=== PATIENT | female | born 1970 | race Caucasian/White ===

== ENCOUNTER 2016-08-28 11:57 | Emergency (ER) | payer MEDICARE, MEDICAID | END 2016-08-28 15:36 | disposition home or self-care (01) | DX: S70.02XA Contusion of left hip, initial encounter (principal); W01.0XXA Fall on same level from slipping, tripping and stumbling without subsequent striking against object, initial encounter; Y92.019 Unspecified place in single-family (private) house as the place of occurrence of the external cause; G90.50 Complex regional pain syndrome I, unspecified; M79.7 Fibromyalgia; F17.200 Nicotine dependence, unspecified, uncomplicated ==

== ENCOUNTER 2016-09-14 09:22 | Emergency (ER) | payer MEDICARE, MEDICAID ==
[2016-09-14] MEDS ORDERED: PROMETHAZINE 25 MG/1 ML VIAL IM STA (12:14)
[2016-09-14] MEDS ORDERED: KETOROLAC 60 MG/2 ML VIAL IM STA (12:14)
--- NOTE | 2016-09-14 12:16 | ED Physician Documentation ---
PD HPI BACK INJURY - Stated complaint Stated Complaint: BACK PX,RIB PX - History obtained from History obtained from: Patient - History of Present Illness Location: Other (46-year-old woman with history of chronic pain in her hips, RSD , she fell 5 days ago on a ramp, landing on her back, also hitting her head. She has no persistent headache, but has persistent severe mid back pain radiating to the front from the incident. It is not resolved with her home hydrocodone, and she's been vomiting, nausea is not uncommon with her. 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, 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, Oophrectomy HEENT: Tonsil/Adenoidectomy - Present Medications Home Medications: Ambulatory Orders Medication Instructions Recorded Confirmed Gabapentin 300 mg PO DAILY 03/11/15 09/14/16 Hydrocodone/Acetaminophen 1 tab PO DAILY 09/14/16 09/14/16 [Hydrocodone-Acetamin 5-163/7.5] Oxycodone HCl/Acetaminophen 1 - 2 tab PO Q4H PRN #10 tablet 09/14/16 [Percocet 5-325 mg Tablet] Propranolol [Inderal] 10 mg PO DAILY 09/14/16 09/14/16 - Allergies Allergies/Adverse Reactions: Allergies Allergy/AdvReac Type Severity Reaction Status Date / Time pregabalin [From Lyrica] Allergy Intermediate Respiratory Verified 03/11/15 08: 41 morphine Allergy Edema Verified 03/11/15 08:41 tramadol HCl * [From Ultram] Allergy Hives Verified 03/11/15 08:41 - Social History Does the pt smoke?: Yes Smoking Status: Current every day smoker Does the pt drink ETOH?: No Does the pt have substance abuse?: Yes Substance Use and Type: Marijuana - Immunizations Immunizations are current?: Yes - POLST Patient has POLST: No PD ED PE NORMAL - Vitals Vital signs reviewed: Yes - General General: Other (Tearful with expansive affect, walking fine, moving around without wincing.) - HEENT HEENT: PERRL, EOMI - Neck Neck: Supple, no meningeal sign, No bony TTP - Cardiac Cardiac: RRR, No murmur - Respiratory Respiratory: No respiratory distress, Clear bilaterally - Abdomen Abdomen: Non tender - Back Back: Other (Diffusely across her whole back she is tender, hyperesthetic, there is no ecchymosis. She points to the lower thoracic spine and right posterior ribs as the site of the pain. The patient has equal and normal patellar and Achilles reflexes bilaterally. Normal sensation in all areas of the legs. Patient denies saddle anesthesia. Normal strength in flexion and extension at the ankles, knees and flexion of the hips.) - Extremities Extremities: No deformity, No tenderness to palpate - Neuro Neuro: Alert and oriented X 3, Normal speech Results - Vitals Vitals: Vital Signs - 24 hr 09/14/16 09:35 Temperature 36.5 C Heart Rate 70 Respiratory 18 Rate Blood Pressure 105/72 O2 Saturation 96 Oxygen O2 Source Room air - Rads (name of study) T spine and B rib XRs Radiology: EMP read contemporaneously (normal) Departure - Departure Disposition: 01 Home, Self Care Clinical Impression: Bilateral contusion of ribs Back contusion Qualifiers: Encounter type: initial encounter Laterality: unspecified laterality Qualified Code(s): S20.229A - Contusion of unspecified back wall of thorax, initial encounter Condition: Good Record reviewed to determine appropriate education?: Yes Instructions: ED Contusion Back Prescriptions: Oxycodone HCl/Acetaminophen [Percocet 5-325 mg Tablet] 1 - 2 tab PO Q4H PRN #10 tablet PRN Reason: Pain Comments: Call your doctor to arrange a follow up appointment. Make the next available appointment. In the interim return anytime if worse or if new symptoms develop. Do not drink or drive while on narcotic pain medicine. Note that many narcotic pain relievers also contain tylenol/acetaminophen. Please ensure that your total dose of acetaminophen from all sources does not exceed 3 grams (3000mg) per day. You may constipated on this medication, take a stool softener such as "Colace" twice a day while you are on it. Also recommend a umgb-mmb-[id number] laxative such as senna or MiraLAX any day that you do not have a bowel movement. If you received narcotic pain medication in the emergency department, do not drive or operate machinery for the next 24 hours.
[2016-09-14] MEDS ORDERED: PROMETHAZINE 25 MG/1 ML VIAL ONE (12:17)
[2016-09-14] MEDS ORDERED: KETOROLAC 60 MG/2 ML VIAL ONE (12:17)
--- NOTE | 2016-09-14 12:52 | XRAY Preliminary Report ---
Exam: XR Thoracic Spine 2 View IMPRESSION: Normal thoracic spine radiography. [facility] SITE ID: [id number]
--- NOTE | 2016-09-14 12:54 | XRAY Preliminary Report ---
Exam: XR Ribs Bilat w/Chest 4 View IMPRESSION: Normal chest and rib radiography. [facility] SITE ID: [id number]
--- NOTE | 2016-09-14 12:57 | XRAY Report ---
EXAM: THORACIC SPINE RADIOGRAPHY EXAM DATE: 09/14/2016 12:45 PM. CLINICAL HISTORY: Back pain, fall. COMPARISON: Thoracic spine MRI study from 04/13/2014. TECHNIQUE: 3 views. FINDINGS: Alignment: Normal. No spondylolisthesis or scoliosis. Bones: No fractures or bone lesions. Disks: Normal. Disk heights are maintained. Soft Tissues: Normal. The visualized lungs and cardiomediastinal silhouette are normal. IMPRESSION: Normal thoracic spine radiography. [facility] Referring Provider Line: [phone] SITE ID: [id number]
--- NOTE | 2016-09-14 12:57 | XRAY Report ---
EXAM: BILATERAL RIB RADIOGRAPHY EXAM DATE: 09/14/2016 12:45 PM. CLINICAL HISTORY: Rib and back pain, fall. COMPARISON: None. TECHNIQUE: 1 view of the chest and 3 views of the ribs. FINDINGS: Bones: Normal. No fracture or bone lesion. Lungs: No focal opacities. No pneumothorax. No pleural effusions. Mediastinum: Heart and mediastinal contours are unremarkable. Other: None. IMPRESSION: Normal chest and rib radiography. [facility] Referring Provider Line: [phone] SITE ID: [id number]
[2016-09-14 13:18] VITALS: BP 112/73
== END 2016-09-14 13:18 | disposition home or self-care (01) ==
LOC: ED 09:22
DX: S20.212A Contusion of left front wall of thorax, initial encounter (principal); S20.211A Contusion of right front wall of thorax, initial encounter; S20.229A Contusion of unspecified back wall of thorax, initial encounter; W10.2XXA Fall (on)(from) incline, initial encounter; Y93.01 Activity, walking, marching and hiking; G90.50 Complex regional pain syndrome I, unspecified; M79.7 Fibromyalgia; F17.200 Nicotine dependence, unspecified, uncomplicated
CPT/HCPCS: 71111; 72070; 96372; 99283

== ENCOUNTER 2016-10-14 09:00 | Emergency (ER) | payer MEDICARE, MEDICAID ==
[2016-10-14 09:22] VITALS: BP 133/91
[2016-10-14] MEDS ORDERED: DEXAMETHASONE 10 MG/ML VIAL PO STA (11:50)
[2016-10-14] MEDS ORDERED: KETOROLAC 60 MG/2 ML VIAL IM STA (11:50)
--- NOTE | 2016-10-14 11:53 | ED Physician Documentation ---
History of Present Illness - Stated complaint Stated Complaint: BODY PX - Chief complaint Chief Complaint: Ext Problem - Additonal information Additional information: hx from pt 46 female states he she has ccomplex regional pain syndrome and fibromylagia (and per CHEO : PTSD bipolar, possible borderline personality disorder) also recent concussion for she has been evaluated wt [facility] - looks like in SEPTEMBER due to her pain/underlying medical issues she is not no longer able to drive to her PMD Dr Goldman at the [facility] in [place] - used to be seen at [facility] but per CHEO that provider declined to prescribe narcotics and referred pt to a pain clinic to ER for several goals 1) she would like a referral to Dr Leiva on [place] (which i will do) 2) and her heart meds refilled (which i will do) 3) and some toradol and steroid in the ER for her pain (which i will do) 4) and her vicodin refilled (which i advised i cannot do) 5) she lives in a trailer and can no longer start her generator, cannot dress herself, cannot care for herself etc so she would like to speak to the foster care social worker (consulted) it is quite difficult to get a hx from the pt - she is agitated anxious pacing and has rapid pressured speech and is upset easily Review of Systems Cardiac: reports: Chest pain / pressure (healing injuries from fall) GI: denies: Abdominal Pain Musculoskeletal: reports: Joint pain (shoulders), Other (states she has entire body pain) PD PAST MEDICAL HISTORY - Past Medical History Cardiovascular: None Neuro: Headache/migraine, Other Psych: Anxiety, Bipolar disorder, Post traumatic stress disorder Musculoskeletal: Fibromyalgia, Chronic back pain - Past Surgical History 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, 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, Oophrectomy HEENT: Tonsil/Adenoidectomy - Present Medications Home Medications: Ambulatory Orders Medication Instructions Recorded Confirmed Gabapentin 300 mg PO DAILY 03/11/15 10/14/16 Hydrocodone/Acetaminophen 1 tab PO DAILY 09/14/16 10/14/16 [Hydrocodone-Acetamin 5-163/7.5] Propranolol [Inderal] 10 mg PO DAILY 09/14/16 10/14/16 - Allergies Allergies/Adverse Reactions: Allergies Allergy/AdvReac Type Severity Reaction Status Date / Time pregabalin [From Lyrica] Allergy Intermediate Respiratory Verified 10/14/16 12: 09 morphine Allergy Edema Verified 10/14/16 12:09 tramadol HCl * [From Ultram] Allergy Hives Verified 10/14/16 12:08 - Social History Does the pt smoke?: Yes Smoking Status: Current every day smoker Does the pt drink ETOH?: No Does the pt have substance abuse?: Yes - Immunizations Immunizations are current?: Yes - POLST Patient has POLST: No PD ED PE NORMAL - Vitals Vital signs reviewed: Yes - HEENT HEENT: PERRL - Neck Neck: Supple, no meningeal sign - Cardiac Cardiac: RRR - Respiratory Respiratory: No respiratory distress, Clear bilaterally, Other (left chest wall TTP no visible bruising or lesions) - Abdomen Abdomen: Soft, Non tender - Derm Derm: Normal color - Neuro Neuro: Other (highly agitated anxious stumbling gait swaying stance refuses to sit down rapid speech) Results - Vitals Vitals: Vital Signs - 24 hr 10/14/16 09:17 Temperature 36.5 C Heart Rate 79 Respiratory 17 Rate Blood Pressure 133/91 H O2 Saturation 99 Oxygen O2 Source Room air PD MEDICAL DECISION MAKING - ED course ED course: asked SW to see pt - SW Denies met with pt and advised that she could help pt get transport to either Dr Leiva (but no new pt appt for at least a month) or her Dr Goldman in [place], also began to address home issues pt very upset because I ordered toradol and decadron - when i said i would get her something for her pain I meant to start with toradol and steroids, I had said I would not refill her vicodin but might be able to give a dose in the ER ( I wanted to review her CHEO and see how she responded to the toradol before dealing with narcotics) and i think she thought she was going to get narcotics right away - she said she had been deceived and she was leaving to go to a walk in clinic - I asked why she felt deceived and she could or would not elaborate but i think that it was related to not getting vicodin immediately - I explained that we were trying to help her - that I had given her pain medications and was refilling her heart meds and the SW was trying to help with transport and housing etc - pt she continued to escalate and be very upset and angry and then eloped all together Departure - Departure Disposition: Against Medical Advice Clinical Impression: Total body pain Condition: Good Discharge Date/Time: 10/14/16 12:19
[2016-10-14] MEDS ORDERED: CHERRY SYRUP 10 ML UDC PO ONE (12:01)
[2016-10-14] MEDS ORDERED: KETOROLAC 60 MG/2 ML VIAL ONE (12:02)
[2016-10-14] MEDS ORDERED: DEXAMETHASONE 10 MG/ML VIAL ONE (12:02)
== END 2016-10-14 12:19 | disposition left against medical advice (07) ==
LOC: ED 09:00
DX: M25.50 Pain in unspecified joint (principal); G89.4 Chronic pain syndrome; M79.7 Fibromyalgia; F17.200 Nicotine dependence, unspecified, uncomplicated; Z76.0 Encounter for issue of repeat prescription
CPT/HCPCS: 96372; 99282; 99283; A9270

== ENCOUNTER 2016-10-15 14:03 | Emergency (ER) | payer MEDICARE, MEDICAID ==
[2016-10-15 14:08] VITALS: BP 152/97
[2016-10-15] MEDS ORDERED: KETOROLAC 60 MG/2 ML VIAL IM STA (14:37)
[2016-10-15] MEDS ORDERED: HYDROcod/ACETAM 5/325 MG TABLET PO STA (14:38)
[2016-10-15] MEDS ORDERED: PROPRANOLOL 10 MG TABLET PO STA (14:39)
[2016-10-15] MEDS ORDERED: KETOROLAC 60 MG/2 ML VIAL ONE (14:46)
[2016-10-15] MEDS ORDERED: HYDROcod/ACETAM 5/325 MG TABLET ONE (14:46)
--- NOTE | 2016-10-15 14:47 | ED Physician Documentation ---
History of Present Illness - Stated complaint Stated Complaint: LEFT SHOULDER PX - Chief complaint Chief Complaint: General - History obtained from History obtained from: Patient Review of Systems Constitutional: reports: Fatigue, Sweats Eyes: denies: Decreased vision Ears: denies: Ear pain Nose: reports: Congestion Throat: denies: Sore throat Cardiac: denies: Chest pain / pressure, Palpitations Respiratory: reports: Cough GI: reports: Abdominal Pain, Diarrhea. 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 HEENT: Tonsil/Adenoidectomy - Allergies Allergies/Adverse Reactions: Allergies Allergy/AdvReac Type Severity Reaction Status Date / Time pregabalin [From Lyrica] Allergy Intermediate Respiratory Verified 10/15/16 14: 08 morphine Allergy Edema Verified 10/15/16 14:08 tramadol HCl * [From Ultram] Allergy Hives Verified 10/15/16 14:08 Tricyclic Compounds Allergy Anxiety Verified 10/15/16 14:09 venlafaxine HCl * Allergy Unknown Verified 10/15/16 14:09 [From Effexor] - Social History Does the pt smoke?: Yes Smoking Status: Current every day smoker Does the pt drink ETOH?: No Does the pt have substance abuse?: Yes - Immunizations Immunizations are current?: Yes - POLST Patient has POLST: No PD ED PE NORMAL - Vitals Vital signs reviewed: Yes (tachy and hypertensive) - General General: Alert and oriented X 3, No acute distress, Other (unkempt) - HEENT HEENT: Atraumatic, PERRL, EOMI - Neck Neck: Supple, no meningeal sign - Cardiac Cardiac: No murmur, Other (TACHY TO 100) - Respiratory Respiratory: No respiratory distress, Clear bilaterally - Abdomen Abdomen: Soft, Non tender - Back Back: Other (There is tenderness to the back to superficial palpation. The pain is exagerated. ) - Derm Derm: Normal color, Warm and dry, No rash - Extremities Extremities: No deformity, No edema, Other (The patient does appear unkempt) - Neuro Neuro: Alert and oriented X 3, No motor deficit, No sensory deficit, Other ( speech is pressured) - Psych Psych: Other (mood is labile happy talkative and then despondent. ) Results - Vitals Vitals: Vital Signs - 24 hr 10/15/16 14:05 Temperature 38.0 C H Heart Rate 106 H Respiratory 18 Rate Blood Pressure 152/97 H O2 Saturation 99 Oxygen O2 Source Room air PD MEDICAL DECISION MAKING - ED course Complexity details: reviewed old records, reviewed results, re-evaluated patient , considered differential, d/w patient ED course: 46 y/o female with chronic complex regional pain syndrome is having a pain crisis and is here the second day in a row asking for help. She indicates she is not able to care for herself at home. She does not have running water or electricity and she has strained the left side of her body pulling on the generator cord. She was in the ED yesterday and feels the steroid and the toradal helped with her pains. She is tangential and circumferential in her history. I have contacted her PMD Dr. Roland Goldman and he will make room in his schedule to see her tomorrow and we will work on help with transportation. Departure - Departure Disposition: 01 Home, Self Care Clinical Impression: Total body pain Condition: Stable Instructions: ED Neck Back Pain General Follow-Up: Roland Goldman MD [Physician No Access] -
== END 2016-10-15 15:30 | disposition home or self-care (01) ==
LOC: ED 14:03
DX: R52 Pain, unspecified (principal); M79.7 Fibromyalgia; F17.200 Nicotine dependence, unspecified, uncomplicated
CPT/HCPCS: 96372; 99283; A9270

== ENCOUNTER 2016-10-16 05:46 | Outpatient (CLI) | payer MEDICARE, MEDICAID | END 2016-10-16 05:47 | disposition critical access hospital (66) | LOC: EMS 05:46 | PROVIDERS: ATTEND Surgery | DX: R10.9 Unspecified abdominal pain (principal) | CPT/HCPCS: A0425; A0429 ==

== ENCOUNTER 2016-10-16 06:01 | Emergency (ER) | payer MEDICARE, MEDICAID ==
[2016-10-16 06:52] LABS: BILIRUBIN,URINE NEGATIVE (NEGATIVE)
[2016-10-16 06:54] LABS: HCG UR QUAL NEGATIVE; UA CHARGE (STRIP ONLY) YES; UR CULTURE IF IND NOT INDICATED
[2016-10-16] MEDS ORDERED: HYDROcod/ACETAM 5/325 MG TABLET PO STA (07:31)
[2016-10-16] MEDS ORDERED: HYDROcod/ACETAM 5/325 MG TABLET ONE (07:36)
--- NOTE | 2016-10-16 07:39 | ED Physician Documentation ---
History of Present Illness - Stated complaint Stated Complaint: ABD PN/GEN BODY ACHE - Chief complaint Chief Complaint: General - History obtained from History obtained from: Patient - History of Present Illness Timing: Today - Additonal information Additional information: 46 y/o female with neuro-inflammatory pain has run out of her vicoden and she is having trouble with abdominal pain and all-over body pain. She has an appointment to see her pain management doctor today at 11am in [place]. She has come to the ED for help the past 3 days. She has had a recent change in her living and is now living alone on property in a trailer without electricity or running water. She is unkempt and disorganized in her thought processes. Review of Systems Constitutional: reports: Myalgias, Fatigue. denies: Fever Eyes: denies: Decreased vision Ears: denies: Ear pain Nose: reports: Congestion Throat: denies: Sore throat Cardiac: denies: Chest pain / pressure, Palpitations Respiratory: denies: Dyspnea, Cough GI: reports: Abdominal Pain, Nausea : denies: Dysuria Skin: denies: Rash Musculoskeletal: reports: Neck pain, Back pain, Extremity pain Neurologic: denies: Generalized weakness, Focal weakness, Numbness PD PAST MEDICAL HISTORY - Past Medical History Cardiovascular: None Neuro: Headache/migraine, Other Psych: Anxiety, Bipolar disorder, Post traumatic stress disorder Musculoskeletal: Fibromyalgia, Chronic back pain - Past Surgical History 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, 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, Oophrectomy HEENT: Tonsil/Adenoidectomy - Allergies Allergies/Adverse Reactions: Allergies Allergy/AdvReac Type Severity Reaction Status Date / Time pregabalin [From Lyrica] Allergy Intermediate Respiratory Verified 10/16/16 06: 09 morphine Allergy Edema Verified 10/16/16 06:09 tramadol HCl * [From Ultram] Allergy Hives Verified 10/16/16 06:09 Tricyclic Compounds Allergy Anxiety Verified 10/16/16 06:09 venlafaxine HCl * Allergy Unknown Verified 10/16/16 06:09 [From Effexor] - Social History Does the pt smoke?: Yes Smoking Status: Current every day smoker Does the pt drink ETOH?: No Does the pt have substance abuse?: Yes Substance Use and Type: Marijuana - Immunizations Immunizations are current?: Yes - POLST Patient has POLST: No PD ED PE NORMAL - Vitals Vital signs reviewed: Yes - General General: No acute distress, Well developed/nourished - HEENT HEENT: Atraumatic, PERRL - Respiratory Respiratory: No respiratory distress - Abdomen Abdomen: Soft, Non tender, Non distended - Derm Derm: Normal color, Warm and dry, No rash - Extremities Extremities: No deformity, No edema - Neuro Neuro: No motor deficit, No sensory deficit, Other (speech is tangential and there are elements of pressured speech. ) - Psych Psych: Normal mood, Normal affect Results - Vitals Vitals: Vital Signs - 24 hr 10/16/16 06:04 Temperature 36.5 C Heart Rate 57 L Respiratory 16 Rate Blood Pressure 119/64 O2 Saturation 99 Oxygen O2 Source Room air - Labs Labs: Laboratory Tests 10/16/16 10/16/16 10/16/16 06:43 06:43 06:43 Urine Color YELLOW Urine Clarity CLEAR Urine pH 6.0 Ur Specific [place] 1.010 1.010 Urine Protein NEGATIVE Urine Glucose (UA) NEGATIVE Urine Ketones NEGATIVE Urine Occult Blood NEGATIVE Urine Nitrite NEGATIVE Urine Bilirubin NEGATIVE Urine Urobilinogen 0.2 (NORMAL) Ur Leukocyte Esterase NEGATIVE Ur Microscopic Review NOT INDICATED Urine Culture Comments NOT INDICATED Urine HCG, Qual NEGATIVE Urine Opiates Screen POSITIVE H Ur Oxycodone Screen NEGATIVE Urine Methadone Screen NEGATIVE Ur Propoxyphene Screen NEGATIVE Ur Barbiturates Screen NEGATIVE Ur Tricyclics Screen NEGATIVE Ur Phencyclidine Scrn NEGATIVE Ur Amphetamine Screen NEGATIVE U Methamphetamines Scrn NEGATIVE U Benzodiazepines Scrn NEGATIVE Urine Cocaine Screen NEGATIVE U Cannabinoids Screen POSITIVE H PD MEDICAL DECISION MAKING - ED course Complexity details: reviewed old records, considered differential, d/w patient ED course: 46 y/o female with complex regional pain syndrome has increased stress and has had falls this past month and is now out of her vicoden and in pain crisis. She was seen in the ED the past 2 days and arrangements have been made to have her see her pain management doctor today. She has travel to [place] today and here in the ED she is given a dose of vicoden and will meet with the manager social work to confirm her transportation. Departure - Departure Disposition: 01 Home, Self Care Clinical Impression: Total body pain Condition: Stable Instructions: ED Chronic Pain Management Follow-Up: Roland Goldman MD [Physician No Access] -
[2016-10-16 07:44] VITALS: BP 130/84
== END 2016-10-16 07:50 | disposition home or self-care (01) ==
LOC: EDUNIT# → ED 06:01
DX: G90.50 Complex regional pain syndrome I, unspecified (principal); M79.7 Fibromyalgia; F17.200 Nicotine dependence, unspecified, uncomplicated
CPT/HCPCS: 80306; 81003; 81025; 99283; A9270; 81001; 87086

== ENCOUNTER 2016-10-21 18:42 | Emergency (ER) | payer MEDICARE, MEDICAID | END 2016-10-21 18:57 | disposition left against medical advice (07) | LOC: ED 18:42 | DX: Z53.21 Procedure and treatment not carried out due to patient leaving prior to being seen by health care provider (principal) ==

== ENCOUNTER 2016-10-22 08:21 | Emergency (ER) | payer MEDICARE, MEDICAID ==
--- NOTE | 2016-10-22 08:31 | ED Physician Documentation ---
PD HPI UPPER EXT INJURY - Stated complaint Stated Complaint: LEFT HIP/SHOULDER PX - History obtained from History obtained from: Patient - History of Present Illness Location: Left, Shoulder, Other (left hip) Type of injury: Fall (she has left shoulder pain chronically but the left hip pain has been the past month since a trip and fall onto it. Seen in ED for it and had xray. Continues to have pain in hip, feeling better flexed. Hurts to walk, posterolateral aspect.) Where injury occurred: Home Timing - onset: Other (chronic for the shoulder pain and 1 month ago for the hip injury) Timing - details: Waxing and waning Worsened by: Moving, Other (walking) Associated symptoms: Numbness (left shoulder and arm with burning feeling in left shoulder and arm when pain worse.). 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, 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, Oophrectomy HEENT: Tonsil/Adenoidectomy - Present Medications Home Medications: Ambulatory Orders Medication Instructions Recorded Confirmed Dexamethasone [Decadron] 4 mg PO DAILY #5 tablet 10/22/16 Divalproex [Renato Grant] 0 mg PO ONCE 10/22/16 10/22/16 Gabapentin 300 mg PO Q4H 10/22/16 10/22/16 HYDROcod/ACETAM 5/325 [[place] 5/325] 0 mg DAILY 10/22/16 10/22/16 Ibuprofen 800 mg PO TID 10/22/16 10/22/16 Propranolol [Inderal] 10 mg DAILY 10/22/16 10/22/16 Sertraline [Zoloft] 75 mg PO DAILY 10/22/16 10/22/16 Tizanidine HCl 4 mg PO TID PRN #30 capsule 10/22/16 oxyCODONE [Roxicodone] 0 mg PO ONCE 10/22/16 10/22/16 - Allergies Allergies/Adverse Reactions: Allergies Allergy/AdvReac Type Severity Reaction Status Date / Time pregabalin [From Lyrica] Allergy Intermediate Respiratory Verified 10/22/16 08: 40 morphine Allergy Edema Verified 10/22/16 08:40 tramadol HCl * [From Ultram] Allergy Hives Verified 10/22/16 08:40 Tricyclic Compounds Allergy Anxiety Verified 10/22/16 08:40 venlafaxine HCl * Allergy Unknown Verified 10/22/16 08:40 [From Effexor] - Social History Does the pt smoke?: Yes Smoking Status: Current every day smoker Does the pt drink ETOH?: No Does the pt have substance abuse?: Yes - Immunizations Immunizations are current?: Yes - POLST Patient has POLST: No PD ED PE NORMAL - Vitals Vital signs reviewed: Yes - General General: Alert and oriented X 3, Well developed/nourished, Other (pulls her knees up readily, kneels on cart, and moves hips well without apparent limitation. She guards motion of the left shoulder. ) - HEENT HEENT: Atraumatic - Neck Neck: Supple, no meningeal sign, No bony TTP, No adenopathy - Cardiac Cardiac: RRR - Respiratory Respiratory: Clear bilaterally - Derm Derm: Normal color, Warm and dry - Extremities Extremities: Other (left hip with ROM and no obvious limit on range and no guarding of motion. Some tenderness laterally. Left shoulder with tenderness to light touch in scapular and lateral shoulder area. No redness nor rash noted. ) - Neuro Neuro: Alert and oriented X 3, No motor deficit, Normal speech - Psych Psych: Normal mood. No: Normal affect (she has tangential thought process, but is not pressured on speech. normal recent recall. No aphasia. Well alert and conversant. ) Results - Vitals Vitals: Vital Signs - 24 hr 10/22/16 08:23 Temperature 37 C Heart Rate 65 Respiratory 20 Rate Blood Pressure 122/73 O2 Saturation 99 Oxygen O2 Source Room air PD MEDICAL DECISION MAKING - ED course Complexity details: reviewed old records (prior visits for similar problems. Had prior xray of the hip. Seens pain management for the regional pain issues. She has distracted and tangential processing c/w psychiatric presentation as well, and does not seem delerium. ), considered differential, d/w patient Departure - Departure Disposition: 01 Home, Self Care Clinical Impression: Autonomic dysreflexia Contusion of hip, left Qualifiers: Encounter type: subsequent encounter Qualified Code(s): S70.02XD - Contusion of left hip, subsequent encounter Chronic pain Qualifiers: Chronic pain type: other chronic pain Qualified Code(s): G89.29 - Other chronic pain Condition: Stable Record reviewed to determine appropriate education?: Yes Prescriptions: Dexamethasone [Decadron] 4 mg PO DAILY #5 tablet Tizanidine HCl 4 mg PO TID PRN #30 capsule PRN Reason: Spasms Comments: Usual medications. Follow up PMD regarding ongoing controlled pain medications. Decadron daily for 5 more days and tizanidine muscle relaxant as needed for spasms. Drink lots of fluids. Discharge Date/Time: 10/22/16 09:43
[2016-10-22 08:40] VITALS: BP 122/73
[2016-10-22] MEDS ORDERED: KETOROLAC 60 MG/2 ML VIAL IM STA (09:04)
[2016-10-22] MEDS ORDERED: DEXAMETHASONE 10 MG/ML VIAL PO STA (09:05)
[2016-10-22] MEDS ORDERED: oxyCOD/ACETAMIN 5 MG/325 MG TABLET PO STA (09:05)
[2016-10-22] MEDS ORDERED: KETOROLAC 30 MG/ML VIAL ONE (09:08)
[2016-10-22] MEDS ORDERED: oxyCOD/ACETAMIN 5 MG/325 MG TABLET PO ONE (09:09)
[2016-10-22] MEDS ORDERED: CHERRY SYRUP 10 ML UDC PO ONE (09:09)
[2016-10-22] MEDS ORDERED: DEXAMETHASONE 10 MG/ML VIAL ONE (09:09)
== END 2016-10-22 09:43 | disposition home or self-care (01) ==
LOC: ED 08:21
DX: G90.4 Autonomic dysreflexia (principal); S70.02XD Contusion of left hip, subsequent encounter; G89.29 Other chronic pain
CPT/HCPCS: 96372; 99283; A9270

== ENCOUNTER 2016-11-03 17:11 | Emergency (ER) | payer MEDICARE, MEDICAID ==
--- NOTE | 2016-11-03 17:45 | ED Physician Documentation ---
PD HPI MHE - Stated complaint Stated Complaint: LT HIP/SHOULDER PX - Chief complaint Chief Complaint: MHE - History obtained from History obtained from: Patient - History of Present Illness Primary symptom: Psychosis, Manic Pain level max: 0 Pain level now: 0 Similar symptoms before: Diagnosis (bipolar) - Additional information Additional information: Patient is a 46-year-old female who presents to the emergency department with vague complaints. She is very tangential, hard to get a story out of and repeating phrases over and over such as she is leaving her fifth wheel. She needs CBD oil for her generator. She wants Toradol injected into her "butt". She [place], when she got out of the cab she said she was coming into the hospital to get a voucher, ran into the bathroom where she took off all of her clothes and ran out into the lobby naked. She was placed into scrubs by the in house cra and checked into the emergency department. She does state that she sees [facility] for bipolar, but does not know her medications or what she is supposed to be taking. 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, 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, Oophrectomy HEENT: Tonsil/Adenoidectomy - Present Medications Home Medications: Ambulatory Orders Medication Instructions Recorded Confirmed Dexamethasone [Decadron] 4 mg PO DAILY #5 tablet 10/22/16 Divalproex [Renato Grant] 0 mg PO ONCE 10/22/16 10/22/16 Gabapentin 300 mg PO Q4H 10/22/16 10/22/16 HYDROcod/ACETAM 5/325 [[place] 5/325] 0 mg DAILY 10/22/16 10/22/16 Ibuprofen 800 mg PO TID 10/22/16 10/22/16 Propranolol [Inderal] 10 mg DAILY 10/22/16 10/22/16 Sertraline [Zoloft] 75 mg PO DAILY 10/22/16 10/22/16 Tizanidine HCl 4 mg PO TID PRN #30 capsule 10/22/16 oxyCODONE [Roxicodone] 0 mg PO ONCE 10/22/16 10/22/16 - Allergies Allergies/Adverse Reactions: Allergies Allergy/AdvReac Type Severity Reaction Status Date / Time pregabalin [From Lyrica] Allergy Intermediate Respiratory Verified 10/22/16 08: 40 morphine Allergy Edema Verified 10/22/16 08:40 tramadol HCl * [From Ultram] Allergy Hives Verified 10/22/16 08:40 Tricyclic Compounds Allergy Anxiety Verified 10/22/16 08:40 venlafaxine HCl * Allergy Unknown Verified 10/22/16 08:40 [From Effexor] - Social History Does the pt smoke?: Yes Smoking Status: Current every day smoker Does the pt drink ETOH?: No Does the pt have substance abuse?: Yes - Immunizations Immunizations are current?: Yes - POLST Patient has POLST: No PD ED PE NORMAL - Vitals Vital signs reviewed: Yes - General General: Other (moving constantly in the room) - HEENT HEENT: PERRL, Moist mucous membranes - Neck Neck: Supple, no meningeal sign - Cardiac Cardiac: Other (tachycardic) - Respiratory Respiratory: No respiratory distress, Clear bilaterally - Abdomen Abdomen: Soft, Non tender - Back Back: No spinal TTP - Derm Derm: Warm and dry - Extremities Extremities: Normal ROM s pain - Neuro Neuro: Other (alert, oriented to person and place) - Psych Psych: Other (tangiential pressured speech, flight of ideas) Results - Vitals Vitals: Vital Signs - 24 hr 11/03/16 11/03/16 11/03/16 17:14 20:07 20:40 Temperature 36.6 C Heart Rate 127 H 76 73 Respiratory 20 18 20 Rate Blood Pressure 123/85 H 117/79 122/89 H O2 Saturation 99 100 100 Oxygen O2 Source Room air - Labs Labs: Laboratory Tests 11/03/16 11/03/16 11/03/16 17:25 17:50 17:50 WBC 9.7 RBC 4.05 L Hgb 13.3 Hct 38.8 MCV 95.6 MCH 32.8 H MCHC 34.3 RDW 12.7 Plt Count 192 MPV 9.9 Neut # 8.4 H Lymph # 0.9 L Johnston # 0.3 Eos # 0.0 Baso # 0.0 Absolute Nucleated RBC 0.00 Nucleated RBCs 0.0 Sodium 137 Potassium 4.0 Chloride 107 Carbon Dioxide 23 Anion Gap 7.0 BUN 25 H Creatinine 0.9 Estimated GFR (MDRD) 68 L Glucose 126 H Calcium 9.2 Total Bilirubin 0.5 AST 18 ALT 18 Alkaline Phosphatase 40 L Total Protein 6.9 Albumin 4.3 Globulin 2.6 Albumin/Globulin Ratio 1.7 Lipase 21 L TSH Urine Color YELLOW Urine Clarity CLEAR Urine pH 6.0 Ur Specific [place] 1.025 Urine Protein NEGATIVE Urine Glucose (UA) NEGATIVE Urine Ketones NEGATIVE Urine Occult Blood NEGATIVE Urine Nitrite NEGATIVE Urine Bilirubin NEGATIVE Urine Urobilinogen 0.2 (NORMAL) Ur Leukocyte Esterase NEGATIVE Ur Microscopic Review NOT INDICATED Urine Culture Comments NOT INDICATED Salicylates < 6.0 Urine Opiates Screen NEGATIVE Ur Oxycodone Screen NEGATIVE Urine Methadone Screen NEGATIVE Ur Propoxyphene Screen NEGATIVE Acetaminophen < 10 L Ur Barbiturates Screen NEGATIVE Ur Tricyclics Screen NEGATIVE Ur Phencyclidine Scrn NEGATIVE Ur Amphetamine Screen NEGATIVE U Methamphetamines Scrn NEGATIVE U Benzodiazepines Scrn NEGATIVE Urine Cocaine Screen NEGATIVE U Cannabinoids Screen POSITIVE H Ethyl Alcohol < 5.0 11/03/16 17:50 WBC RBC Hgb Hct MCV MCH MCHC RDW Plt Count MPV Neut # Lymph # Johnston # Eos # Baso # Absolute Nucleated RBC Nucleated RBCs Sodium Potassium Chloride Carbon Dioxide Anion Gap BUN Creatinine Estimated GFR (MDRD) Glucose Calcium Total Bilirubin AST ALT Alkaline Phosphatase Total Protein Albumin Globulin Albumin/Globulin Ratio Lipase TSH 1.11 Urine Color Urine Clarity Urine pH Ur Specific [place] Urine Protein Urine Glucose (UA) Urine Ketones Urine Occult Blood Urine Nitrite Urine Bilirubin Urine Urobilinogen Ur Leukocyte Esterase Ur Microscopic Review Urine Culture Comments Salicylates Urine Opiates Screen Ur Oxycodone Screen Urine Methadone Screen Ur Propoxyphene Screen Acetaminophen Ur Barbiturates Screen Ur Tricyclics Screen Ur Phencyclidine Scrn Ur Amphetamine Screen U Methamphetamines Scrn U Benzodiazepines Scrn Urine Cocaine Screen U Cannabinoids Screen Ethyl Alcohol PD MEDICAL DECISION MAKING - ED course Complexity details: reviewed results, re-evaluated patient, considered differential, d/w patient, d/w cruise consultant ED course: Patient is a 46-year-old female with a history of bipolar who presents in the acute manic phase with psychosis. [facility] P was consulted, Nadia, who detained the patient. The patient apparently was recently released from [facility] and [facility]. Will send the patient back there for repeat evaluation. Patient is actually quite cooperative in the emergency department, but is very manic and psychotic. This document was made in part using voice recognition software. While efforts are made to proofread this document, sound alike and grammatical errors may occur. Departure - Departure Disposition: 65 Psych Hosp/Unit DC/Xfer Clinical Impression: Bipolar disorder with severe ryan Condition: Stable
[2016-11-03 17:48] LABS: BILIRUBIN,URINE NEGATIVE (NEGATIVE)
[2016-11-03 17:49] LABS: UA CHARGE (STRIP ONLY) YES; UR CULTURE IF IND NOT INDICATED
[2016-11-03 17:57] LABS: EOSINOPHILS % (AUTO) 0.4 %; HCT - HEMATOCRIT 38.8 % (37.0-47.0); HGB - HEMOGLOBIN 13.3 g/dL (12.0-16.0); LYMPHOCYTES # (AUTO) 0.9 10^3/uL (1.5-3.5); LYMPHOCYTES % (AUTO) 9.8 %; MEAN CORPUSCULAR HEMOGLOBIN 32.8 pg (27.0-31.0); MEAN CORPUSCULAR HGB CONC 34.3 g/dL (32.0-36.0); MEAN CORPUSCULAR VOLUME 95.6 fL (81.0-99.0); MEAN PLATELET VOLUME 9.9 fL (7.9-10.8); MONOCYTES # (AUTO) 0.3 10^3/uL (0.0-1.0); MONOCYTES % (AUTO) 2.6 %; NEUTROPHILS # (AUTO) 8.4 10^3/uL (1.5-6.6); NEUTROPHILS % (AUTO) 87.2 %; RED BLOOD COUNT 4.05 10^6/uL (4.20-5.40); RED CELL DISTRIBUTION WIDTH 12.7 % (12.0-15.0); UNCORRECTED WHITE BLOOD COUNT 9.7 x10^3/uL; WHITE BLOOD COUNT 9.7 x10^3/uL (4.8-10.8)
[2016-11-03 18:13] LABS: ALBUMIN/GLOBULIN RATIO 1.7 (1.0-2.2); BILIRUBIN,TOTAL 0.5 mg/dL (0.2-1.0); BUN - BLOOD UREA NITROGEN 25 mg/dL (6-20); CALCIUM 9.2 mg/dL (8.5-10.3); CARBON DIOXIDE - CO2 23 mmol/L (21-32); CHLORIDE 107 mmol/L (101-111); CREATININE 0.9 mg/dL (0.4-1.0); GFR - MDRD 68 (>89); GLUCOSE 126 mg/dL (70-100); LIPASE 21 U/L (22-51); SALICYLATE < 6.0 mg/dL; SODIUM 137 mmol/L (135-145); TOTAL PROTEIN 6.9 g/dL (6.7-8.2)
[2016-11-03 18:18] LABS: ACETAMINOPHEN < 10 ug/mL (10-30)
[2016-11-03 23:41] VITALS: BP 110/60
== END 2016-11-03 23:55 ==
LOC: ED 17:11
DX: F31.2 Bipolar disorder, current episode manic severe with psychotic features (principal); F43.10 Post-traumatic stress disorder, unspecified; F17.200 Nicotine dependence, unspecified, uncomplicated
CPT/HCPCS: 36415; 80053; 80306; 80307; 81003; 83690; 84443; 85025; 99284; G0480; 80320; 80329; 81001; 87086

== ENCOUNTER 2016-11-22 01:05 | Emergency (ER) | payer MEDICARE, MEDICAID ==
[2016-11-22 01:13] VITALS: BP 121/83
--- NOTE | 2016-11-22 01:54 | ED Physician Documentation ---
History of Present Illness - Stated complaint Stated Complaint: HIP PX - Chief complaint Chief Complaint: General - History obtained from History obtained from: Patient - History of Present Illness Timing: Today Pain level now: 6 Improved by: rest Worsened by: exertion - Additonal information Additional information: frequent ED visits. today, c/o pain associated with multiple sites including left hip, right foot (RSD), right shoulder, neck, back. various reasons for her different pains ("walking all day", RSD, fibromyalgia, fall). she requests toradol and "something stronger to level the playingfield", which she specifies as hydrocodone. 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, 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, Oophrectomy HEENT: Tonsil/Adenoidectomy - Present Medications Home Medications: Ambulatory Orders Medication Instructions Recorded Confirmed Dexamethasone [Decadron] 4 mg PO DAILY #5 tablet 10/22/16 Divalproex [Renato Grant] 0 mg PO ONCE 10/22/16 10/22/16 Gabapentin 300 mg PO Q4H 10/22/16 10/22/16 HYDROcod/ACETAM 5/325 [[place] 5/325] 0 mg DAILY 10/22/16 10/22/16 Ibuprofen 800 mg PO TID 10/22/16 10/22/16 Propranolol [Inderal] 10 mg DAILY 10/22/16 10/22/16 Sertraline [Zoloft] 75 mg PO DAILY 10/22/16 10/22/16 Tizanidine HCl 4 mg PO TID PRN #30 capsule 10/22/16 oxyCODONE [Roxicodone] 0 mg PO ONCE 10/22/16 10/22/16 - Allergies Allergies/Adverse Reactions: Allergies Allergy/AdvReac Type Severity Reaction Status Date / Time pregabalin [From Lyrica] Allergy Intermediate Respiratory Verified 10/22/16 08: 40 morphine Allergy Edema Verified 10/22/16 08:40 tramadol HCl * [From Ultram] Allergy Hives Verified 10/22/16 08:40 Tricyclic Compounds Allergy Anxiety Verified 10/22/16 08:40 venlafaxine HCl * Allergy Unknown Verified 10/22/16 08:40 [From Effexor] - Social History Does the pt smoke?: Yes Smoking Status: Current every day smoker Does the pt drink ETOH?: No Does the pt have substance abuse?: Yes - Immunizations Immunizations are current?: Yes - POLST Patient has POLST: No PD ED PE NORMAL - Vitals Vital signs reviewed: Yes - General General: Alert and oriented X 3, No acute distress, Well developed/nourished - HEENT HEENT: PERRL, EOMI - Cardiac Cardiac: RRR, No murmur - Respiratory Respiratory: No respiratory distress, Clear bilaterally - Extremities Extremities: No tenderness to palpate, Normal ROM s pain - Neuro Neuro: No motor deficit, No sensory deficit PD ED PE EXPANDED - Psych Psych: Tearful (towards end of interview), Anxious, Agitated, Other (in conversation, she rapidly becomes defensive and upset with what she perceives as personal judgement despite my repeated attempts to explain that I am using medical judgment only. I expressed my concerns regarding her frequent ED visits for pain c/o including when she had to be admitted to psychiatric facility. she was angry about this and didnt understand why it happened. I tried to remind her she had taken her clothes off and walked around the waiting room naked; she has no recollection of this, and is very angry with me, does not believe me despite documentation on previous visits's charting ) Results - Vitals Vitals: Oxygen O2 Source Room air PD MEDICAL DECISION MAKING - ED course Complexity details: reviewed old records, considered differential, d/w patient, d/w family ED course: given IM toradol , 2 tablets Vicodin, and discharged. she says she will contact Dr. Whiteside's office when they open to arrange for follow-up Departure - Departure Disposition: 01 Home, Self Care Clinical Impression: Total body pain Condition: Good Instructions: ED Muscle Aching Follow-Up: Willi Whiteside MD [Provider Admit Priv/Credential] - Discharge Date/Time: 11/22/16 02:54
[2016-11-22] MEDS ORDERED: KETOROLAC 60 MG/2 ML VIAL IM STA (02:27)
[2016-11-22] MEDS ORDERED: HYDROcod/ACETAM 5/325 MG TABLET PO STA (02:27)
[2016-11-22] MEDS ORDERED: HYDROcod/ACETAM 5/325 MG TABLET ONE (02:34)
[2016-11-22] MEDS ORDERED: KETOROLAC 60 MG/2 ML VIAL ONE (02:34)
== END 2016-11-22 02:54 | disposition home or self-care (01) ==
LOC: ED 01:05
DX: R52 Pain, unspecified (principal); F17.200 Nicotine dependence, unspecified, uncomplicated
CPT/HCPCS: 96372; 99283; A9270

== ENCOUNTER 2017-07-27 09:12 | Emergency (ER) | payer MEDICARE, MEDICAID ==
[2017-07-27 09:30] VITALS: BP 144/96
[2017-07-27] MEDS ORDERED: LIDOCAINE PATCH 5% TOP STA (10:03)
[2017-07-27] MEDS ORDERED: predniSONE 20 MG TABLET PO STA (10:03)
--- NOTE | 2017-07-27 10:05 | ED Physician Documentation ---
History of Present Illness - Stated complaint Stated Complaint: LT SHOULDER/HAND PX - Chief complaint Chief Complaint: Ext Problem - Additonal information Additional information: hx from pt she relates a hx of concussions and some type of aphasia so she is a little hard to understand seems she has a hx of shoulder problems and dislocations and has seen ortho before and also suffers from RSD presents to ED today with L shoulder pain with palpation and movement not comlaining of chest abd pain or soa - says she has chronic pain but no specifically worse chest or abd etc today no injury no fever she feels this is a flare of her RSD she prefers no opitaes she thinks steroids and a lido patch will help Review of Systems Constitutional: denies: Fever, Chills Cardiac: denies: Chest pain / pressure Respiratory: denies: Dyspnea GI: denies: Abdominal Pain Skin: denies: Rash Musculoskeletal: reports: Joint pain PD PAST MEDICAL HISTORY - Past Medical History Past Medical History: Yes Cardiovascular: None Respiratory: None Neuro: Headache/migraine, Other Endocrine/Autoimmune: None GI: None 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 HEENT: None Psych: Anxiety, Bipolar disorder, Schizophrenia, Post traumatic stress disorder Musculoskeletal: Fibromyalgia, Chronic back pain Derm: None - Past Surgical History 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, 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, Oophrectomy HEENT: Tonsil/Adenoidectomy - Present Medications Home Medications: Ambulatory Orders Medication Instructions Recorded Confirmed Dexamethasone [Decadron] 4 mg PO DAILY #5 tablet 10/22/16 Divalproex [Depsavanna Grant] 0 mg PO ONCE 10/22/16 10/22/16 Gabapentin 300 mg PO Q4H 10/22/16 10/22/16 HYDROcod/ACETAM 5/325 [[place] 5/325] 0 mg DAILY 10/22/16 10/22/16 Ibuprofen 800 mg PO TID 10/22/16 10/22/16 Propranolol [Inderal] 10 mg DAILY 10/22/16 10/22/16 Sertraline [Zoloft] 75 mg PO DAILY 10/22/16 10/22/16 Tizanidine HCl 4 mg PO TID PRN #30 capsule 10/22/16 oxyCODONE [Roxicodone] 0 mg PO ONCE 10/22/16 10/22/16 Lidocaine Patch 5% [Lidoderm Patch] 1 each TOP DAILY PRN #10 patch 07/27/17 predniSONE [Deltasone] 20 mg PO [id number] #21 tab 07/27/17 - Allergies Allergies/Adverse Reactions: Allergies Allergy/AdvReac Type Severity Reaction Status Date / Time pregabalin [From Lyrica] Allergy Intermediate Respiratory Verified 07/27/17 09: 31 morphine Allergy Edema Verified 07/27/17 09:31 tramadol HCl * [From Ultram] Allergy Hives Verified 07/27/17 09:31 Tricyclic Compounds Allergy Anxiety Verified 07/27/17 09:31 venlafaxine HCl * Allergy Unknown Verified 07/27/17 09:31 [From Effexor] - Social History Does the pt smoke?: Yes Smoking Status: Current every day smoker Does the pt drink ETOH?: No Does the pt have substance abuse?: Yes - Immunizations Immunizations are current?: Yes - POLST Patient has POLST: No PD ED PE NORMAL - Vitals Vital signs reviewed: Yes - Neck Neck: Supple, no meningeal sign - Cardiac Cardiac: RRR - Respiratory Respiratory: No respiratory distress, Clear bilaterally - Derm Derm: Normal color - Extremities Extremities: Other (L shoulder - no swelling no deformity no redness no warmth, extremely tender to touch or move, 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 ABD and wrist ext intact , sensation intact, brisk cap refill, + radial pulse) Results - Vitals Vitals: Vital Signs - 24 hr 07/27/17 09:20 Temperature 36.0 C L Heart Rate 94 Respiratory 12 Rate Blood Pressure 144/96 H O2 Saturation 98 Oxygen O2 Source Room air PD MEDICAL DECISION MAKING - ED course ED course: pt seems to clearly have musculoskeletal pain - hurts to touch L shoulder, hurts to move the shoulder I do not feel this is referred cardiac pulm or abd pain will tx symptomatically Departure - Departure Disposition: 01 Home, Self Care Clinical Impression: RSD (reflex sympathetic dystrophy) Left shoulder pain Qualifiers: Chronicity: acute Qualified Code(s): M25.512 - Pain in left shoulder Condition: Good Prescriptions: Lidocaine Patch 5% [Lidoderm Patch] 1 each TOP DAILY PRN #10 patch PRN Reason: Pain predniSONE [Deltasone] 20 mg PO [id number] #21 tab Comments: You did not injure your shoulder It does not appear dislocated or infected Try the lidocaine patches and the steroid taper. Follow up with orthopedics as needed. Follow up with your PMD to discuss pain management Return if worse
== END 2017-07-27 10:12 | disposition home or self-care (01) ==
LOC: ED 09:12
DX: G90.512 Complex regional pain syndrome I of left upper limb (principal); M25.512 Pain in left shoulder; R47.01 Aphasia; F17.200 Nicotine dependence, unspecified, uncomplicated
CPT/HCPCS: 99283; A9270; J7512

== ENCOUNTER 2017-08-04 00:15 | Outpatient (CLI) | payer MEDICARE, MEDICAID | END 2017-08-04 00:16 | disposition critical access hospital (66) | LOC: EMS 00:15 | PROVIDERS: ATTEND Surgery | DX: M25.519 Pain in unspecified shoulder (principal) | CPT/HCPCS: A0425; A0429 ==

== ENCOUNTER 2017-08-04 00:38 | Emergency (ER) | payer MEDICARE, MEDICAID ==
[2017-08-04 00:52] VITALS: BP 131/90
--- NOTE | 2017-08-04 01:30 | ED Physician Documentation ---
History of Present Illness - Stated complaint Stated Complaint: PAIN - Chief complaint Chief Complaint: General - History obtained from History obtained from: Patient, EMS - History of Present Illness Timing: Chronic Worsened by: movement, palpation - Additonal information Additional information: HPI, ROS, and exam are limited due to factors as noted in following narrative. patient presents by ambulance having called 911 due to a chief complaint of left shoulder pain. medic describes similar difficulty obtaining HPI as I find on my evaluation of this patient. Patient is tangential, anxious, speaks in long, run-on sentences, and interrupts nearly every sentence when I try to engage in a conversation to obtain HPI and ROS. She says she is having left shoulder pain radiating down LUE , that her medications dont work, that she wants a new (outpatient) physician. She says she remembers me from our last encounter (November), and expresses anger regarding the worst summer of my life (per patient), and then begins crying and expressing that she is afraid of me. My encounter with patient in November was similar to this encounter, with patient exhibiting labile affect without any provocation or context. Nurse Isadora was present during my time spent in room with patient during [facility] ED evaluation. I was able to ask her about chief complaint and was able to ask if this is her chronic pain for which she has been this ED several times before. Subsequently, due to her constant interruptions, I could not obtain any further information from questions. She did ask me to contact her paint booth operator at one point, and I explained that I did not feel it would be necessary nor helpful for me to do so at 2 AM for this chronic problem. She refused physical exam, cried loudly during much of her stay. I had to leave the room due to lack of productive conversation. She eventually requested to talk to me again, and she rapidly returned to the same behaviors. I was able to offer her Toradol and one Vicodin to try to provide some pain relief, which she accepted. She subsequently requested discharge so she could go home and take care of her dogs. She says she has friends coming later today who can help her. 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 HEENT: None Psych: Anxiety, Bipolar disorder, Schizophrenia, Post traumatic stress disorder Musculoskeletal: Fibromyalgia, Chronic back pain Derm: None - Past Surgical History Past Surgical History: Yes /NEWSPAPER SUBSCRIPTION SOLICITOR: Dilation and currettage, 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, Oophrectomy HEENT: Tonsil/Adenoidectomy - Present Medications Home Medications: Ambulatory Orders Medication Instructions Recorded Confirmed Dexamethasone [Decadron] 4 mg PO DAILY #5 tablet 10/22/[address] [Depakote Dr] 0 mg PO ONCE 10/22/16 10/22/16 Gabapentin 300 mg PO Q4H 10/22/16 10/22/16 HYDROcod/ACETAM 5/325 [[place] 5/325] 0 mg DAILY 10/22/16 10/22/16 Ibuprofen 800 mg PO TID 10/22/16 10/22/16 Propranolol [Inderal] 10 mg DAILY 10/22/16 10/22/16 Sertraline [Zoloft] 75 mg PO DAILY 10/22/16 10/22/16 Tizanidine HCl 4 mg PO TID PRN #30 capsule 10/22/16 oxyCODONE [Roxicodone] 0 mg PO ONCE 10/22/16 10/22/16 Lidocaine Patch 5% [Lidoderm Patch] 1 each TOP DAILY PRN #10 patch 07/27/17 predniSONE [Deltasone] 20 mg PO [id number] #21 tab 07/27/17 - Allergies Allergies/Adverse Reactions: Allergies Allergy/AdvReac Type Severity Reaction Status Date / Time pregabalin [From Lyrica] Allergy Intermediate Respiratory Verified 08/04/17 16: 22 morphine Allergy Edema Verified 08/04/17 16:22 tramadol HCl * [From Ultram] Allergy Hives Verified 08/04/17 16:22 Tricyclic Compounds Allergy Anxiety Verified 08/04/17 16:22 venlafaxine HCl * Allergy Unknown Verified 08/04/17 16:22 [From Effexor] - Social History Does the pt smoke?: Yes Smoking Status: Current every day smoker Does the pt drink ETOH?: No Does the pt have substance abuse?: Yes - Immunizations Immunizations are current?: Yes - POLST Patient has POLST: No PD ED PE NORMAL - Vitals Vital signs reviewed: Yes - General General: Well developed/nourished, Other (labile affect: quiet and NAD at times , loud and crying at times, anxious, then calm) - Neuro Neuro: Other (she does not allow me to finish sentences, and thus I cannot directly assess orientation. however, she is awake, alert, and the content of her speech indicates she is oriented to person, place, and time ) Results - Vitals Vitals: Vital Signs - 24 hr 08/04/17 00:47 Temperature 36.5 C Heart Rate 64 Respiratory 20 Rate Blood Pressure 131/90 H O2 Saturation 97 Oxygen O2 Source Room air PD MEDICAL DECISION MAKING - ED course Complexity details: reviewed old records, re-evaluated patient, considered differential, d/w patient ED course: At the time of my evaluation, patient was exhibiting odd behavior that included persistent frustrations at my attempts to engage in a dialogue regarding her HPI , ROS, and discussion of treatment options. However, she did not make statements or exhibit behaviors indicative of psychosis or delirium; patient was discharged per her request. she did not make any statements that indicated SI, HI, AH, or VH. Departure - Departure Disposition: 01 Home, Self Care Clinical Impression: Left shoulder pain Qualifiers: Chronicity: chronic Qualified Code(s): M25.512 - Pain in left shoulder Chronic pain Qualifiers: Chronic pain type: other chronic pain Qualified Code(s): G89.29 - Other chronic pain Condition: Good Instructions: ED Chronic Pain Management Follow-Up: [facility] [Provider Group] [facility] [Provider Group] Discharge Date/Time: 08/04/17 03:19
[2017-08-04] MEDS ORDERED: KETOROLAC 60 MG/2 ML VIAL IM STA (02:11)
[2017-08-04] MEDS ORDERED: HYDROcod/ACETAM 5/325 MG TABLET PO STA (02:11)
== END 2017-08-04 03:19 | disposition home or self-care (01) ==
LOC: ED 00:38
DX: M25.512 Pain in left shoulder (principal); G89.29 Other chronic pain; M79.7 Fibromyalgia; M54.9 Dorsalgia, unspecified; F17.200 Nicotine dependence, unspecified, uncomplicated
CPT/HCPCS: 96372; 99283; A9270

== ENCOUNTER 2017-08-04 15:35 | Outpatient (CLI) | payer MEDICARE, MEDICAID | END 2017-08-04 15:36 | disposition critical access hospital (66) | LOC: EMS 15:35 | PROVIDERS: ATTEND Surgery | DX: M54.9 Dorsalgia, unspecified (principal) | CPT/HCPCS: A0425; A0429 ==

== ENCOUNTER 2017-08-04 15:53 | Emergency (ER) | payer MEDICARE, MEDICAID ==
[2017-08-04] MEDS ORDERED: KETOROLAC 60 MG/2 ML VIAL IM STA (16:03)
[2017-08-04 16:44] LABS: MUDS CUTOFF CONCENTRATIONS CUTOFF CONC BELOW:
[2017-08-04 16:53] LABS: BILIRUBIN,URINE NEGATIVE (NEGATIVE); GLUCOSE, URINE (UA) NEGATIVE (NEGATIVE); KETONES,URINE (UA) 15 mg/dL (NEGATIVE); LEUKOCYTE ESTERASE, URINE NEGATIVE (NEGATIVE); NITRITE,URINE NEGATIVE (NEGATIVE); OCCULT BLOOD,URINE MODERATE (NEGATIVE); PROTEIN,URINE NEGATIVE (NEGATIVE); UROBILINOGEN,URINE 0.2 (NORMAL) E.U./dL (NORMAL)
[2017-08-04 16:54] LABS: CLARITY,URINE HAZY (CLEAR); HCG UR QUAL NEGATIVE
[2017-08-04] MEDS ORDERED: OLANZapine 10 MG VIAL IM STA ×3 (16:54→20:14)
[2017-08-04] MEDS ORDERED: LIDOCAINE PATCH 5% TOP STA (16:54)
--- NOTE | 2017-08-04 17:00 | XRAY Report ---
EXAM: THORACIC SPINE RADIOGRAPHY EXAM DATE: 08/04/2017 04:41 PM. CLINICAL HISTORY: Back pain, fall. COMPARISON: Thoracic spine 09/14/2016. TECHNIQUE: 2 views. FINDINGS: Alignment: No spondylolysis thesis. Minimal rightward scoliosis in the thoracic spine again noted. Bones: No fractures or bone lesions. Disks: Mild endplate osteophytes again seen at the upper and mid thoracic spine. Soft Tissues: Normal. The visualized lungs and cardiomediastinal silhouette are normal. IMPRESSION: No evidence for acute fracture. Mild degenerative disk disease in the thoracic spine. [facility] Referring Provider Line: [phone] SITE ID: [id number]
--- NOTE | 2017-08-04 17:00 | XRAY Preliminary Report ---
Exam: XR THORACIC SPINE 2 VIEW IMPRESSION: No evidence for acute fracture. Mild degenerative disk disease in the thoracic spine. [facility] SITE ID: [id number]
[2017-08-04 17:04] LABS: AMPHETAMINE SCREEN,URINE NEGATIVE (NEGATIVE); BENZODIAZEPINES SCREEN, URINE NEGATIVE (NEGATIVE); COCAINE SCREEN URINE NEGATIVE (NEGATIVE); METHADONE SCREEN, URINE NEGATIVE (NEGATIVE); METHAMPHETAMINES SCREEN, URINE NEGATIVE (NEGATIVE); OPIATE SCREEN, URINE POSITIVE (NEGATIVE); OXYCODONE SCREEN, URINE NEGATIVE (NEGATIVE); PROPOXYPHENE SCREEN, URINE NEGATIVE (NEGATIVE); TRICYCLIC ANTIDEPRESSANT,URINE NEGATIVE (NEGATIVE)
[2017-08-04 17:09] LABS: BACTERIA,URINE Few /HPF (None Seen); SQUAMOUS EPITHELIAL CELL,UR MOD Squamous (<= Few)
[2017-08-04 17:13] LABS: BASOPHILS % (AUTO) 1.9 %; HGB - HEMOGLOBIN 16.5 g/dL (12.0-16.0); LYMPHOCYTES % (AUTO) 18.5 %; MEAN CORPUSCULAR HEMOGLOBIN 32.3 pg (27.0-31.0); MEAN CORPUSCULAR HGB CONC 34.3 g/dL (32.0-36.0); MEAN CORPUSCULAR VOLUME 94.2 fL (81.0-99.0); MONOCYTES % (AUTO) 5.6 %; PLT - PLATELET COUNT 222 10^3/uL (130-450); RED BLOOD COUNT 5.12 10^6/uL (4.20-5.40); RED CELL DISTRIBUTION WIDTH 12.6 % (12.0-15.0); WHITE BLOOD COUNT 13.1 x10^3/uL (4.8-10.8)
[2017-08-04 17:14] LABS: ABNORMAL LYMPHS % (MANUAL) 0 %
[2017-08-04 17:23] LABS: ALBUMIN 5.3 g/dL (3.2-5.5); ALKALINE PHOSPHATASE 27 IU/L (42-121); ALT ALANINE AMINOTRANSFERASE 26 IU/L (10-60); AST ASPARTATE AMINOTRANSFERASE 22 IU/L (10-42); BILIRUBIN,TOTAL 1.2 mg/dL (0.2-1.0); BUN - BLOOD UREA NITROGEN 18 mg/dL (6-20); CALCIUM 9.3 mg/dL (8.5-10.3); CARBON DIOXIDE - CO2 21 mmol/L (21-32); CHLORIDE 102 mmol/L (101-111); CREATININE 0.8 mg/dL (0.4-1.0); GFR - MDRD 77 (>89); GLUCOSE 105 mg/dL (70-100); LIPASE 23 U/L (22-51); SALICYLATE < 6.0 mg/dL; SODIUM 136 mmol/L (135-145); TOTAL PROTEIN 7.9 g/dL (6.7-8.2)
[2017-08-04 17:24] LABS: ACETAMINOPHEN < 10 ug/mL (10-30)
[2017-08-04 18:10] LABS: BAND NEUTROPHILS % (MANUAL) 3 %; EOSINOPHILS # (MANUAL) 0.1 10^3/uL (0-0.7); LYMPHOCYTES # (MANUAL) 2.2 10^3/uL (1.5-3.5); LYMPHOCYTES % (MANUAL) 17 %; MONOCYTES # (MANUAL) 0.9 10^3/uL (0.0-1.0); NEUTROPHILS # (MANUAL) 9.8 10^3/uL (1.5-6.6); NEUTROPHILS % (MANUAL) 72 %; PLATELET ESTIMATE, MANUAL NORMAL (130-450,000) (NORMAL); PLATELET MORPHOLOGY NORMAL APPEARANCE (NORMAL); RBC MORPHOLOGY (MULTIPLE) NORMAL APPEARANCE (NORMAL)
[2017-08-04 18:11] LABS: DIFFERENTIAL COMMENT MANUAL DIFFERENTIAL
--- NOTE | 2017-08-04 18:59 | ED Physician Documentation ---
PD HPI MHE - Stated complaint Stated Complaint: BACK PX - Chief complaint Chief Complaint: MHE - History obtained from History obtained from: Patient, EMS - History of Present Illness Primary symptom: Psychosis, Manic Timing - onset: Unknown Pain level max: 10 Pain level now: 10 Similar symptoms before: Diagnosis (psychosis) Recently seen: Not recently seen - Additional information Additional information: Patient is a 47-year-old female who presents to the emergency department complaining of back pain. States that her doctor will not call her back that they tell her it is all in her mind. She states she needs to go to [facility] to take a shower. States that her arms and legs do not work despite her ambulating in the emergency department and lifting up her bag of belongings. She is screaming expletives at the staff, unable to follow simple commands or speak coherent thoughts. Pressured speech. She states that her back is hurt for several months and that she needs to see an orthopedic doctor. She states that she needs to go to physical therapy so they can give her a bath. She states she is unable to bathe herself. She states she does not want to wake up like this. States that she may as well . States she does not want to go back to her "domestic". 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 HEENT: None Psych: Anxiety, Bipolar disorder, Schizophrenia, Post traumatic stress disorder Musculoskeletal: Fibromyalgia, Chronic back pain Derm: None - Past Surgical History Past Surgical History: Yes /LARRY OPERATOR: Dilation and currettage, 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, Oophrectomy HEENT: Tonsil/Adenoidectomy - Present Medications Home Medications: Ambulatory Orders Medication Instructions Recorded Confirmed Dexamethasone [Decadron] 4 mg PO DAILY #5 tablet 10/22/16 Divalproex [Renato Grant] 0 mg PO ONCE 10/22/16 10/22/16 Gabapentin 300 mg PO Q4H 10/22/16 10/22/16 HYDROcod/ACETAM 5/325 [[place] 5/325] 0 mg DAILY 10/22/16 10/22/16 Ibuprofen 800 mg PO TID 10/22/16 10/22/16 Propranolol [Inderal] 10 mg DAILY 10/22/16 10/22/16 Sertraline [Zoloft] 75 mg PO DAILY 10/22/16 10/22/16 Tizanidine HCl 4 mg PO TID PRN #30 capsule 10/22/16 oxyCODONE [Roxicodone] 0 mg PO ONCE 10/22/16 10/22/16 Lidocaine Patch 5% [Lidoderm Patch] 1 each TOP DAILY PRN #10 patch 07/27/17 predniSONE [Deltasone] 20 mg PO [id number] #21 tab 07/27/17 - Allergies Allergies/Adverse Reactions: Allergies Allergy/AdvReac Type Severity Reaction Status Date / Time pregabalin [From Lyrica] Allergy Intermediate Respiratory Verified 08/04/17 16: 22 morphine Allergy Edema Verified 08/04/17 16:22 tramadol HCl * [From Ultram] Allergy Hives Verified 08/04/17 16:22 Tricyclic Compounds Allergy Anxiety Verified 08/04/17 16:22 venlafaxine HCl * Allergy Unknown Verified 08/04/17 16:22 [From Effexor] - Social History Does the pt smoke?: Yes Smoking Status: Current every day smoker Does the pt drink ETOH?: No Does the pt have substance abuse?: Yes - Immunizations Immunizations are current?: Yes - POLST Patient has POLST: No PD ED PE NORMAL - Vitals Vital signs reviewed: Yes - General General: No acute distress, Other (alert, oriented to person and place) - HEENT HEENT: PERRL, Moist mucous membranes, Pharynx benign - Neck Neck: Supple, no meningeal sign - Cardiac Cardiac: RRR, Strong equal pulses - Respiratory Respiratory: No respiratory distress, Clear bilaterally - Abdomen Abdomen: Soft, Non tender, Non distended - Back Back: No spinal TTP, Other (no muscle spasm. no midline tenderness to percussion or palpation.) - Derm Derm: Warm and dry - Extremities Extremities: No deformity, No tenderness to palpate - Neuro Neuro: Alert and oriented X 3, crank hand 2-12 intact, No motor deficit, No sensory deficit Results - Vitals Vitals: Vital Signs - 24 hr 08/04/17 16:00 Temperature 37.0 C Heart Rate 80 Respiratory 18 Rate Blood Pressure 140/90 H O2 Saturation 95 Oxygen O2 Source Room air - Labs Labs: Laboratory Tests 08/04/17 08/04/17 08/04/17 15:30 16:30 16:59 WBC 13.1 H RBC 5.12 Hgb 16.5 H Hct 48.2 H MCV 94.2 MCH 32.3 H MCHC 34.3 RDW 12.6 Plt Count 222 MPV 10.0 Neut # Not Reportable Lymph # Not Reportable [place] # Not Reportable Eos # Not Reportable Baso # Not Reportable Absolute Nucleated RBC Not Reportable Total Counted 100 Band Neuts % (Manual) 3 Abnorm Lymph % (Manual) 0 Nucleated RBC % Not Reportable Neutrophils # (Manual) 9.8 H Lymphocytes # (Manual) 2.2 Monocytes # (Manual) 0.9 Eosinophils # (Manual) 0.1 Basophils # (Manual) 0.0 Differential Comment MANUAL DIFFERENTIAL Platelet Estimate NORMAL (130-450,000) Platelet Morphology NORMAL APPEARANCE RBC Morph Micro Appear NORMAL APPEARANCE Sodium Potassium Chloride Carbon Dioxide Anion Gap BUN Creatinine Estimated GFR (MDRD) Glucose Calcium Total Bilirubin AST ALT Alkaline Phosphatase Total Protein Albumin Globulin Albumin/Globulin Ratio Lipase Urine Color YELLOW Urine Clarity HAZY Urine pH 6.0 Ur Specific Pinch >=1.030 H Urine Protein NEGATIVE Urine Glucose (UA) NEGATIVE Urine Ketones 15 H Urine Occult Blood MODERATE H Urine Nitrite NEGATIVE Urine Bilirubin NEGATIVE Urine Urobilinogen 0.2 (NORMAL) Ur Leukocyte Esterase NEGATIVE Urine RBC 6-10 H Urine WBC 0-3 Ur Squamous Epith Cells MOD Squamous H Urine Bacteria Few Ur Microscopic Review INDICATED Urine Culture Comments NOT INDICATED Urine HCG, Qual NEGATIVE Salicylates Urine Opiates Screen POSITIVE H Ur Oxycodone Screen NEGATIVE Urine Methadone Screen NEGATIVE Ur Propoxyphene Screen NEGATIVE Acetaminophen Ur Barbiturates Screen NEGATIVE Ur Tricyclics Screen NEGATIVE Ur Phencyclidine Scrn NEGATIVE Ur Amphetamine Screen NEGATIVE U Methamphetamines Scrn NEGATIVE U Benzodiazepines Scrn NEGATIVE Urine Cocaine Screen NEGATIVE U Cannabinoids Screen POSITIVE H Ethyl Alcohol 08/04/17 16:59 WBC RBC Hgb Hct MCV MCH MCHC RDW Plt Count MPV Neut # Lymph # [place] # Eos # Baso # Absolute Nucleated RBC Total Counted Band Neuts % (Manual) Abnorm Lymph % (Manual) Nucleated RBC % Neutrophils # (Manual) Lymphocytes # (Manual) Monocytes # (Manual) Eosinophils # (Manual) Basophils # (Manual) Differential Comment Platelet Estimate Platelet Morphology RBC Morph Micro Appear Sodium 136 Potassium 4.2 Chloride 102 Carbon Dioxide 21 Anion Gap 13.0 BUN 18 Creatinine 0.8 Estimated GFR (MDRD) 77 L Glucose 105 H Calcium 9.3 Total Bilirubin 1.2 H AST 22 ALT 26 Alkaline Phosphatase 27 L Total Protein 7.9 Albumin 5.3 Globulin 2.6 Albumin/Globulin Ratio 2.0 Lipase 23 Urine Color Urine Clarity Urine pH Ur Specific Pinch Urine Protein Urine Glucose (UA) Urine Ketones Urine Occult Blood Urine Nitrite Urine Bilirubin Urine Urobilinogen Ur Leukocyte Esterase Urine RBC Urine WBC Ur Squamous Epith Cells Urine Bacteria Ur Microscopic Review Urine Culture Comments Urine HCG, Qual Salicylates < 6.0 Urine Opiates Screen Ur Oxycodone Screen Urine Methadone Screen Ur Propoxyphene Screen Acetaminophen < 10 L Ur Barbiturates Screen Ur Tricyclics Screen Ur Phencyclidine Scrn Ur Amphetamine Screen U Methamphetamines Scrn U Benzodiazepines Scrn Urine Cocaine Screen U Cannabinoids Screen Ethyl Alcohol < 5.0 - Rads (name of study) T spine xray Radiology: Prelim report reviewed, EMP read contemporaneously, See rad report ( normal) PD MEDICAL DECISION MAKING - ED course Complexity details: reviewed old records, reviewed results, re-evaluated patient , considered differential, d/w patient ED course: Patient is acutely psychotic, unable to cooperate with care. She is dressed in panty hose and underwear, no pants. States that she is unable to use her arms but picks up her belongings and he walks around the emergency department. She is very agitated, screaming, yelling. Patient states that she is going to go hang herself in a tree. Patient finally calmed down after 20 mg of Zyprexa and 2 mg of Ativan IM. [facility] P evaluated the patient and are still evaluating the patient at the end of my shift, therefore will sign the patient out to the oncoming emergency department physician. This document was made in part using voice recognition software. While efforts are made to proofread this document, sound alike and grammatical errors may occur. Departure - Departure Clinical Impression: Bipolar disorder with severe ryan Psychosis Qualifiers: Psychosis type: unspecified psychosis type Qualified Code(s): F29 - Unspecified psychosis not due to a substance or known physiological condition Condition: Stable
[2017-08-04] MEDS ORDERED: LORazepam 2 MG/ML VIAL IM STA (20:14)
[2017-08-05] MEDS ORDERED: OLANZapine 10 MG VIAL IM STA (07:33)
[2017-08-05 09:27] VITALS: BP 111/65
--- NOTE | 2017-08-05 09:33 | ED Physician Documentation ---
ED Addendum - Addendum Addendum: 08/05/17 09:32 assumed care AM shift 08/05 pt awake ambulatory awaiting EMS transport for inpt mental health [facility] complete for [facility] form needed to be filled out which I did no acute events
== END 2017-08-05 09:30 ==
LOC: EDUNIT# → ED 15:53
DX: F31.9 Bipolar disorder, unspecified (principal); F29 Unspecified psychosis not due to a substance or known physiological condition; G89.29 Other chronic pain; M25.512 Pain in left shoulder; M79.7 Fibromyalgia; M54.9 Dorsalgia, unspecified; F17.200 Nicotine dependence, unspecified, uncomplicated
CPT/HCPCS: 36415; 72070; 80053; 80306; 80307; 81001; 81025; 83690; 85025; 96372; 99283; 99284; 99285; A9270; G0480; J2060; 80320; 80329; 81003; 87086

== ENCOUNTER 2018-02-10 09:08 | Emergency (ER) | payer MEDICARE, MEDICAID ==
[2018-02-10 09:25] VITALS: BP 156/103
[2018-02-10] MEDS ORDERED: LIDOCAINE PATCH 5% TOP PRN (09:36)
[2018-02-10] MEDS ORDERED: KETOROLAC 60 MG/2 ML VIAL IM STA (09:36)
--- NOTE | 2018-02-10 09:44 | ED Physician Documentation ---
History of Present Illness - Stated complaint Stated Complaint: BACK/RT HIP PX - Chief complaint Chief Complaint: Back Pain - Additonal information Additional information: hx from pt EMR and [facility] 47 f denies preg well known to our ER - this is her 29th visit most visits for pain, some for MHE, some for illness per [facility] pmhx RSD PTSD bipolar, goes to pain clinic last percocet fill 01/27 #60 pt to ED today for back and right hip pain states she slept wrong no fall states she took her last percocet yesterday denies fever no cough CP SOA no abd pain states she has chronic urinary incont not new vacillates on whether she is numb or weak but states that is due to her RSD as well states she uses [facility] but denies IVDA denies preg in summary - per pt hx acute exac of a chronic problem and out of percocet Review of Systems Constitutional: denies: Fever Cardiac: denies: Chest pain / pressure Respiratory: denies: Dyspnea, Cough GI: denies: Abdominal Pain : reports: Incontinent (states not new). 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 HEENT: None Psych: Anxiety, Bipolar disorder, Schizophrenia, Post traumatic stress disorder Musculoskeletal: Fibromyalgia, Chronic back pain Derm: None - Past Surgical History Past Surgical History: Yes /SUCTION DREDGE DUMPING SUPERVISOR: Dilation and currettage, 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, Oophrectomy HEENT: Tonsil/Adenoidectomy - Present Medications Home Medications: Ambulatory Orders Medication Instructions Recorded Confirmed Divalproex [Renato Grant] 500 mg PO BID 10/22/16 10/22/16 Gabapentin 600 mg PO TID 10/22/16 10/22/16 Ibuprofen 800 mg PO TID 10/22/16 10/22/16 Propranolol [Inderal] 10 mg BID 10/22/16 10/22/16 Sertraline [Zoloft] 50 mg PO DAILY 10/22/16 10/22/16 Tizanidine HCl 4 mg PO TID PRN #30 capsule 10/22/16 oxyCODONE [Roxicodone] 0 mg PO ONCE 10/22/16 10/22/16 Budesonide [Budesonide EC] 9 mg PO DAILY 02/10/18 02/10/18 - Allergies Allergies/Adverse Reactions: Allergies Allergy/AdvReac Type Severity Reaction Status Date / Time pregabalin [From Lyrica] Allergy Intermediate Respiratory Verified 02/10/18 09:25 morphine Allergy Edema Verified 02/10/18 09:25 tramadol HCl * [From Ultram] Allergy Hives Verified 02/10/18 09:25 Tricyclic Compounds Allergy Anxiety Verified 02/10/18 09:25 venlafaxine HCl * Allergy Unknown Verified 02/10/18 09:25 [From Effexor] - Social History Does the pt smoke?: Yes Smoking Status: Current every day smoker Does the pt drink ETOH?: No Does the pt have substance abuse?: Yes - Immunizations Immunizations are current?: Yes - POLST Patient has POLST: No PD ED PE NORMAL - Vitals Vital signs reviewed: Yes (BP up, pt quite agitated) - General General: Other (pt laying face down, upside down on the bed, with her shirt half off, laughing) - HEENT HEENT: Atraumatic - Neck Neck: Supple, no meningeal sign - Cardiac Cardiac: RRR, No murmur - Respiratory Respiratory: No respiratory distress, Clear bilaterally - Abdomen Abdomen: Soft, Non tender, Other (no pulsatile mass) - Back Back: No spinal TTP, Other (diffuse lumbar TTP, no ROM limitation, no focal redness swelling warmth) - Extremities Extremities: Other (R hip TTP laterally but no erythema or warmth and full ROM) - Neuro Neuro: Other (no saddle anesthesia, nl sensation to light touch to both legs, hip felxion knee ext foot dorsi plnatr intact, could not get pt to cooperate with great toe ext, neg SLR, no clonus, could not get pt to cooperate with patellar DTR either, she is now laying on her back kicking her legs in the air) Results - Vitals Vitals: Vital Signs - 24 hr 02/10/18 09:17 Temperature 36.5 C Heart Rate 87 Respiratory 16 Rate Blood Pressure 156/103 H O2 Saturation 99 Oxygen O2 Source Room air PD MEDICAL DECISION MAKING - ED course ED course: difficult hx and exam but pt has hx chronic pain is out of meds afebrile and denies IVDA wants a narcotic when i advised I would give toradol and lidocaine but not a narcotic she got on the phone to call her pain doctor - Sepsis Event Vital Signs: Vital Signs - 24 hr 02/10/18 09:17 Temperature 36.5 C Heart Rate 87 Respiratory 16 Rate Blood Pressure 156/103 H O2 Saturation 99 Oxygen O2 Source Room air Departure - Departure Disposition: Home, Self Care Clinical Impression: Back pain Qualifiers: Back pain location: low back pain Chronicity: chronic Back pain laterality: bilateral Sciatica presence: with sciatica Sciatica laterality: sciatica of right side Qualified Code(s): M54.41 - Lumbago with sciatica, right side Condition: Fair Instructions: ED Neck Back Pain General Comments: Your pain and narcotic medications are managed by Dr Goldman - the ER cannot prescribe you narcotics for this chronic problem. You were given a toradol shot and lidocaine patch for the pain If you are out of percocet please discuss with your hand touch up painter Return if worse
[2018-02-10 09:51] LABS: MUDS CUTOFF CONCENTRATIONS CUTOFF CONC BELOW:
[2018-02-10 10:02] LABS: BILIRUBIN,URINE NEGATIVE (NEGATIVE); CLARITY,URINE CLEAR (CLEAR); GLUCOSE, URINE (UA) NEGATIVE (NEGATIVE); HCG UR QUAL NEGATIVE; KETONES,URINE (UA) NEGATIVE (NEGATIVE); LEUKOCYTE ESTERASE, URINE NEGATIVE (NEGATIVE); NITRITE,URINE NEGATIVE (NEGATIVE); OCCULT BLOOD,URINE NEGATIVE (NEGATIVE); PROTEIN,URINE NEGATIVE (NEGATIVE); UROBILINOGEN,URINE 0.2 (NORMAL) E.U./dL (NORMAL)
[2018-02-10 10:22] LABS: AMPHETAMINE SCREEN,URINE NEGATIVE (NEGATIVE); BENZODIAZEPINES SCREEN, URINE NEGATIVE (NEGATIVE); COCAINE SCREEN URINE NEGATIVE (NEGATIVE); METHADONE SCREEN, URINE NEGATIVE (NEGATIVE); METHAMPHETAMINES SCREEN, URINE NEGATIVE (NEGATIVE); OPIATE SCREEN, URINE NEGATIVE (NEGATIVE); OXYCODONE SCREEN, URINE NEGATIVE (NEGATIVE); PROPOXYPHENE SCREEN, URINE NEGATIVE (NEGATIVE); TRICYCLIC ANTIDEPRESSANT,URINE NEGATIVE (NEGATIVE)
== END 2018-02-10 10:51 | disposition home or self-care (01) ==
LOC: ED 09:08
DX: M54.41 Lumbago with sciatica, right side (principal); G89.29 Other chronic pain; F17.200 Nicotine dependence, unspecified, uncomplicated
CPT/HCPCS: 81003; 81025; 96372; 99283; A9270; 80306; 81001; 87086

== ENCOUNTER 2018-08-13 09:51 | Outpatient (CLI) | payer MEDICARE, MEDICAID ==
--- NOTE | 2018-08-14 08:11 | MRI Report ---
Reason: DISORDER LEFT SHOULDER, STRAIN OF UNSPECIFIED MUSC Procedure Date: 08/13/2018 Accession Number: [id number] / [id number] Procedure: MRI - Shoulder LT W/O CPT Code: FULL RESULT: EXAM: LEFT SHOULDER MRI WITHOUT CONTRAST EXAM DATE: 08/13/2018 11:37 AM. CLINICAL HISTORY: Disorder left shoulder, strain of unspecified muscle. COMPARISON: None. TECHNIQUE: Multiplanar, multisequence T1-weighted and fluid-sensitive sequences of the shoulder without contrast. Other: None. FINDINGS: Acromioclavicular Region: The acromion is type II. The acromioclavicular joint is unremarkable. The coracoacromial and coracoclavicular ligaments are intact. No subacromial/subdeltoid bursal fluid. Glenohumeral Region: Superior subluxation humerus head. Small shoulder joint fluid. Severe chondromalacia anterior glenoid. The glenohumeral ligaments and joint capsule are unremarkable. Bone Marrow: Mild spurring medial humerus head. Degenerative spurring anterior glenoid. Bony remodeling, sclerosis and subcortical cystic degenerative changes anterior glenoid. Probable Hill-Sachs deformity superior lateral humerus at 1.7 cm in AP dimension, 3.8 mm in depth and 1.5 cm in height. Labrum: Remote complex displaced anterior inferior labrum tear. Possible remote [place] lesion. Musculature/Rotator Cuff: Negative for fluid signal subscapularis tendon tear. Negative for supraspinatus tendon tear. Intermediate signal undersurface distal posterior infraspinatus tendon at the level of the Hill-Sachs deformity. The rotator cuff muscles are negative for atrophy or edema. Biceps Tendon: The long head of the biceps tendon and biceps raffi are intact. Other: The subcutaneous tissues are unremarkable. IMPRESSION: 1. 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 2. Probable superior lateral humerus head Bankart lesion. 3. Correlate with clinical anterior shoulder instability and history of prior dislocation. 4. Negative for rotator cuff tear. [facility] MUSCULOSKELETAL RADIOLOGY SECTION
== END 2018-08-13 09:52 | disposition home or self-care (01) ==
LOC: DI 09:51
PROVIDERS: ATTEND Internal Medicine
DX: M19.112 Post-traumatic osteoarthritis, left shoulder (principal)

== ENCOUNTER 2018-11-21 10:41 | Emergency (ER) | payer MEDICARE, MEDICAID ==
[2018-11-21 11:02] VITALS: BP 128/101
--- NOTE | 2018-11-21 12:14 | ED Physician Documentation ---
PD HPI UPPER EXT INJURY - Stated complaint Stated Complaint: BILAT ARM PX - Chief complaint Chief Complaint: Back Pain - History obtained from History obtained from: Patient - History of Present Illness Location: Shoulder (48-year-old woman presents the emergency department complaining of years worth of bilateral shoulder pain, used to be right worse than left but since yesterday is left worse than right because she was driving and lifting yesterday. She has a history of RSD and some psychiatric issues. 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 HEENT: None Psych: Anxiety, Bipolar disorder, Schizophrenia, Post traumatic stress disorder Musculoskeletal: Fibromyalgia, Chronic back pain Derm: None - Past Surgical History Past Surgical History: 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: Dilation and currettage, 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, Oophrectomy HEENT: Tonsil/Adenoidectomy - Present Medications Home Medications: Ambulatory Orders Medication Instructions Recorded Confirmed Divalproex [Renato Grant] 500 mg PO BID 10/22/16 10/22/16 RX: Gabapentin 600 mg PO TID 10/22/16 10/22/16 RX: Ibuprofen 800 mg PO TID 10/22/16 10/22/16 RX: Propranolol [Inderal] 10 mg BID 10/22/16 10/22/16 RX: Tizanidine HCl 4 mg PO TID PRN #30 capsule 10/22/16 Sertraline [Zoloft] 50 mg PO DAILY 10/22/16 10/22/16 oxyCODONE [Roxicodone] 0 mg PO ONCE 10/22/16 10/22/16 Budesonide [Budesonide EC] 9 mg PO DAILY 02/10/18 02/10/18 RX: Lidocaine Patch 5% [Lidoderm 1 each TOP DAILY PRN #15 patch 02/10/18 Patch] - Allergies Allergies/Adverse Reactions: Allergies Allergy/AdvReac Type Severity Reaction Status Date / Time pregabalin [From Lyrica] Allergy Intermediate Respiratory Verified 11/21/18 11:02 morphine Allergy Edema Verified 11/21/18 11:02 tramadol HCl * [From Ultram] Allergy Hives Verified 11/21/18 11:02 Tricyclic Compounds Allergy Anxiety Verified 11/21/18 11:02 venlafaxine HCl * Allergy Unknown Verified 11/21/18 11:02 [From Effexor] - Social History Does the pt smoke?: Yes Smoking Status: Current every day smoker Does the pt drink ETOH?: No Does the pt have substance abuse?: Yes - Immunizations Immunizations are current?: Yes - POLST Patient has POLST: No PD ED PE NORMAL - Vitals Vital signs reviewed: Yes - General General: Alert and oriented X 3, Other (Very odd affect with inappropriate laughing and overt anxiety) - Extremities Extremities: Other (No obvious tenderness of either shoulder but she is very hesitant to let me examine either shoulder. When I asked her to internally and externally rotate both shoulders she says she cannot but then shows me how she can do it. She will not abduct on either side.) - Neuro Neuro: Alert and oriented X 3, Normal speech Results - Vitals Vitals: Vital Signs - 24 hr 11/21/18 11:00 Temperature 36.9 C Heart Rate 75 Respiratory 20 Rate Blood Pressure 128/101 H O2 Saturation 97 Oxygen O2 Source Room air PD MEDICAL DECISION MAKING - ED course ED course: After my initial evaluation I spoke with her PCP Dr. Goldman who said he was actually more worried about psychiatric issues with this patient and decompensation and safety as opposed to any exacerbation of chronic shoulder issues. He is trying to slowly taper her off of her narcotics. I addressed this with the patient, she denies any safety issues, hallucinations or suicidal or homicidal ideation. She declined any further treatment for her shoulders today. Departure - Departure Disposition: 01 Home, Self Care Clinical Impression: Chronic pain Condition: Good Record reviewed to determine appropriate education?: Yes Health Concerns: shoulder pain, chronic Plan of Treatment: followup with Dr Goldman for pain management issues. Instructions: ED Chronic Pain Management Comments: As we discussed, your shoulder pain is not an acute issue. And your physician was as, or more worried about your safety and psychiatric stability which you have assured me is not an ongoing or acute problem. Please follow-up with your physician for ongoing pain management. Discharge Date/Time: 11/21/18 12:35
== END 2018-11-21 12:35 | disposition home or self-care (01) ==
LOC: ED 10:41
DX: G89.29 Other chronic pain (principal); M25.512 Pain in left shoulder; M25.511 Pain in right shoulder; F17.200 Nicotine dependence, unspecified, uncomplicated
CPT/HCPCS: 99281; 99282

== ENCOUNTER 2020-11-12 02:08 | Emergency (ER) | payer OTHER, MEDICARE ==
[2020-11-12 02:32] VITALS: BP 100/69
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
== END 2020-11-12 02:42 | disposition home or self-care (01) ==
LOC: ED 02:08
DX: M25.562 Pain in left knee (principal); V48.5XXA Car driver injured in noncollision transport accident in traffic accident, initial encounter; F17.200 Nicotine dependence, unspecified, uncomplicated
CPT/HCPCS: 36415; 99281

== ENCOUNTER 2020-11-12 02:21 | Outpatient (CLI) | payer OTHER, MEDICARE | END 2020-11-12 02:22 | disposition home or self-care (01) | LOC: LAB 02:21 | PROVIDERS: ATTEND Pathology Blood Banking & Transfusion Medicine | DX: Z01.89 Encounter for other specified special examinations (principal) | CPT/HCPCS: 36415 ==

== ENCOUNTER 2021-06-17 10:53 | Outpatient (CLI) | payer MEDICAID, MEDICARE | END 2021-06-17 10:54 | disposition critical access hospital (66) | LOC: EMS 10:53 | DX: R53.1 Weakness (principal); R41.82 Altered mental status, unspecified | CPT/HCPCS: A0425; A0429 ==

== ENCOUNTER 2021-06-17 11:14 | Emergency (ER) | payer MEDICAID, MEDICARE ==
[2021-06-17 11:30] VITALS: BP 129/98
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
== END 2021-06-17 12:17 | disposition home or self-care (01) ==
LOC: EDUNIT# → ED 11:14
DX: F25.9 Schizoaffective disorder, unspecified (principal); F17.200 Nicotine dependence, unspecified, uncomplicated
CPT/HCPCS: 80053; 80320; 83690; 84443; 85025; 99283

== ENCOUNTER 2021-06-19 09:17 | Emergency (ER) | payer MEDICARE ==
[2021-06-19 09:28] VITALS: BP 129/90
== END 2021-06-19 09:45 | disposition left against medical advice (07) ==
LOC: ED 09:17
DX: Z53.21 Procedure and treatment not carried out due to patient leaving prior to being seen by health care provider (principal)

== ENCOUNTER 2021-06-22 05:19 | Emergency (ER) | payer MEDICARE ==
[2021-06-22 05:37] VITALS: BP 132/87
[2021-06-22] MEDS ORDERED: TETANUS/DIPHTHERIA/PERTUSSIS 0.5 ML SYRINGE IM ONE (05:42)
[2021-06-22] MEDS ORDERED: BACITRACIN ZINC OINT 1 PACKET TOP STA (05:42)
[2021-06-22] MEDS ORDERED: ACETAMINOPHEN 325 MG TABLET PO STA (05:42)
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
== END 2021-06-22 07:26 | disposition home or self-care (01) ==
LOC: ED 05:19
DX: T23.111A Burn of first degree of right thumb (nail), initial encounter (principal); R51.9 Headache, unspecified; F17.200 Nicotine dependence, unspecified, uncomplicated; Z23 Encounter for immunization; Z71.85 Encounter for immunization safety counseling
CPT/HCPCS: 90715; 99282; 99283; A9270

== ENCOUNTER 2021-06-25 19:46 | Outpatient (CLI) | payer MEDICARE | END 2021-06-25 19:47 | disposition critical access hospital (66) | LOC: EMS 19:46 | DX: R41.82 Altered mental status, unspecified (principal) | CPT/HCPCS: A0425; A0429 ==

== ENCOUNTER 2021-06-25 19:48 | Emergency (ER) | payer MEDICARE ==
--- NOTE | 2021-06-25 19:53 | ED Physician Documentation ---
History of Present Illness - Stated complaint Stated Complaint: ETOH,AMS - History obtained from History obtained from: Patient, EMS - Additonal information Additional information: 51-year-old woman brought in by EMS for altered mental status. Reportedly was at [facility] and acting funny and hallucinating. Had admitted to using alcohol, marijuana, and "other drugs, but she does not know what. History is limited from the patient due to altered mental status. 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: Dilation and currettage, 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, Oophrectomy HEENT: Tonsil/Adenoidectomy - Present Medications Home Medications: Ambulatory Orders Medication Instructions Recorded Confirmed Divalproex [Renato Grant] 500 mg PO BID 10/22/16 10/22/16 Gabapentin 600 mg PO TID 10/22/16 10/22/16 Ibuprofen 800 mg PO TID 10/22/16 10/22/16 Propranolol [Inderal] 10 mg BID 10/22/16 10/22/16 Sertraline [Zoloft] 50 mg PO DAILY 10/22/16 10/22/16 Tizanidine HCl 4 mg PO TID PRN #30 capsule 10/22/16 oxyCODONE [Roxicodone] 0 mg PO ONCE 10/22/16 10/22/16 Budesonide [Budesonide EC] 9 mg PO DAILY 02/10/18 02/10/18 Lidocaine Patch 5% [Lidoderm Patch] 1 each TOP DAILY PRN #15 patch 02/10/18 - Allergies Allergies/Adverse Reactions: Allergies Allergy/AdvReac Type Severity Reaction Status Date / Time pregabalin [From Lyrica] Allergy Intermediate Respiratory Verified 06/25/21 20:04 morphine Allergy Edema Verified 06/25/21 20:04 tramadol HCl * [From Ultram] Allergy Hives Verified 06/25/21 20:04 Tricyclic Compounds Allergy Anxiety Verified 06/25/21 20:04 venlafaxine HCl * Allergy Unknown Verified 06/25/21 20:04 [From Effexor] - Social History Does the pt smoke?: Yes Smoking Status: Current every day smoker Does the pt drink ETOH?: No Does the pt have substance abuse?: Yes - Immunizations Immunizations are current?: Yes - POLST Patient has POLST: No PD ED PE NORMAL - Vitals Vital signs reviewed: Yes - General General: Other (She will wake up and follow simple commands and state her name. Otherwise saying "are you one of them?") - HEENT HEENT: PERRL - Neck Neck: Supple, no meningeal sign, No bony TTP - Cardiac Cardiac: RRR, No murmur - Respiratory Respiratory: No respiratory distress, Clear bilaterally - Abdomen Abdomen: Normal bowel sounds, Soft, Non tender - Back Back: No CVA TTP, No spinal TTP - Derm Derm: Normal color, Warm and dry - Extremities Extremities: Other (Scrapes on the hands and knee on the left. No bony tenderness of any extremity.) - Neuro Neuro: No motor deficit, No sensory deficit Eye Opening: To Voice Motor: Obeys Commands Verbal: Confused GCS Score: 13 Results - Vitals Vitals: Vital Signs - 24 hr 06/25/21 06/26/21 06/26/21 19:57 00:10 02:17 Temperature 36.9 C 36.7 C Heart Rate 100 81 72 Respiratory 18 17 16 Rate Blood Pressure 94/70 100/69 110/73 O2 Saturation 100 99 99 06/26/21 06:28 Temperature 36.6 C Heart Rate 71 Respiratory 16 Rate Blood Pressure 111/71 O2 Saturation 99 Oxygen O2 Source Room air - EKG (time done) 2140 Rate: Rate (enter#) (87) Rhythm: NSR Anderson: Normal QRS: LVH Ischemia: Normal ST segments Computer interpretation: Agree with computer - Labs Labs: Laboratory Tests 06/25/21 06/25/21 06/25/21 20:02 20:02 20:02 WBC 9.1 RBC 4.50 Hgb 13.9 Hct 41.7 MCV 92.7 MCH 30.9 MCHC 33.3 RDW 13.1 Plt Count 343 MPV 11.1 H Neut # (Auto) 6.6 Lymph # (Auto) 1.8 [place] # (Auto) 0.4 Eos # (Auto) 0.2 Baso # (Auto) 0.1 Absolute Nucleated RBC 0.00 Nucleated RBC % 0.0 Sodium 143 Potassium 3.7 Chloride 101 Carbon Dioxide 30 Anion Gap 12.0 BUN 21 H Creatinine 0.8 Estimated GFR (MDRD) 76 L Glucose 190 H Calcium 9.5 Total Bilirubin 0.3 AST 25 ALT 23 Alkaline Phosphatase 56 Total Protein 6.9 Albumin 3.7 Globulin 3.2 Albumin/Globulin Ratio 1.2 Lipase 47 TSH 0.79 Urine Color Urine Clarity Urine pH Ur Specific [place] Urine Protein Urine Glucose (UA) Urine Ketones Urine Occult Blood Urine Nitrite Urine Bilirubin Urine Urobilinogen Ur Leukocyte Esterase Ur Microscopic Review Urine Culture Comments Urine HCG, Qual Salicylates < 6.0 Urine Opiates Screen Ur Oxycodone Screen Urine Methadone Screen Ur Propoxyphene Screen Acetaminophen < 10 L Ur Barbiturates Screen Ur Tricyclics Screen Ur Phencyclidine Scrn Ur Amphetamine Screen U Methamphetamines Scrn U Benzodiazepines Scrn Urine Cocaine Screen U Cannabinoids Screen Ethyl Alcohol < 5.0 SARS-CoV-2 (PCR) 06/25/21 06/25/21 20:26 20:47 WBC RBC Hgb Hct MCV MCH MCHC RDW Plt Count MPV Neut # (Auto) Lymph # (Auto) [place] # (Auto) Eos # (Auto) Baso # (Auto) Absolute Nucleated RBC Nucleated RBC % Sodium Potassium Chloride Carbon Dioxide Anion Gap BUN Creatinine Estimated GFR (MDRD) Glucose Calcium Total Bilirubin AST ALT Alkaline Phosphatase Total Protein Albumin Globulin Albumin/Globulin Ratio Lipase TSH Urine Color YELLOW Urine Clarity CLEAR Urine pH 6.0 Ur Specific [place] 1.025 Urine Protein NEGATIVE Urine Glucose (UA) NEGATIVE Urine Ketones NEGATIVE Urine Occult Blood NEGATIVE Urine Nitrite NEGATIVE Urine Bilirubin NEGATIVE Urine Urobilinogen 0.2 (NORMAL) Ur Leukocyte Esterase NEGATIVE Ur Microscopic Review NOT INDICATED Urine Culture Comments NOT INDICATED Urine HCG, Qual NEGATIVE Salicylates Urine Opiates Screen NEGATIVE Ur Oxycodone Screen NEGATIVE Urine Methadone Screen NEGATIVE Ur Propoxyphene Screen NEGATIVE Acetaminophen Ur Barbiturates Screen NEGATIVE Ur Tricyclics Screen NEGATIVE Ur Phencyclidine Scrn NEGATIVE Ur Amphetamine Screen NEGATIVE U Methamphetamines Scrn NEGATIVE U Benzodiazepines Scrn NEGATIVE Urine Cocaine Screen NEGATIVE U Cannabinoids Screen POSITIVE H Ethyl Alcohol SARS-CoV-2 (PCR) NOT DETECTED - Rads (name of study) CT of the head and cervical spine demonstrate maxillary sinus disease and degenerative disc disease without evidence of trauma Radiology: EMP read contemporaneously PD MEDICAL DECISION MAKING - ED course ED course: 51-year-old woman brought in psychotic with reported drug use, except her drug screen is negative save cannabis and no alcohol on board. She does have an extensive history of mental health issues and by process of illumination suspect she is having an exacerbation of these which at least at this point in time, 9 PM on June 25 she appears to be gravely disabled. As such the DCR is dispatched for evaluation. Departure - Departure Disposition: 65 Psych Hosp/Unit DC/Xfer Clinical Impression: Psychosis Qualifiers: Psychosis type: unspecified psychosis type Qualified Code(s): F29 - Unspecified psychosis not due to a substance or known physiological condition Condition: Stable Discharge Date/Time: 06/26/21 09:10
[2021-06-25 20:09] LABS: BASOPHILS # (AUTO) 0.1 10^3/uL (0.0-0.1); BASOPHILS % (AUTO) 1.3 %; EOSINOPHILS # (AUTO) 0.2 10^3/uL (0.0-0.7); EOSINOPHILS % (AUTO) 1.8 %; HCT - HEMATOCRIT 41.7 % (37.0-47.0); HGB - HEMOGLOBIN 13.9 g/dL (12.0-16.0); LYMPHOCYTES # (AUTO) 1.8 10^3/uL (1.5-3.5); LYMPHOCYTES % (AUTO) 19.6 %; MEAN CORPUSCULAR HEMOGLOBIN 30.9 pg (27.0-31.0); MEAN CORPUSCULAR HGB CONC 33.3 g/dL (32.0-36.0); MEAN CORPUSCULAR VOLUME 92.7 fL (81.0-99.0); MEAN PLATELET VOLUME 11.1 fL (7.9-10.8); MONOCYTES # (AUTO) 0.4 10^3/uL (0.0-1.0); MONOCYTES % (AUTO) 4.1 %; NEUTROPHILS # (AUTO) 6.6 10^3/uL (1.5-6.6); NEUTROPHILS % (AUTO) 72.9 %; PLT - PLATELET COUNT 343 10^3/uL (130-450); RED CELL DISTRIBUTION WIDTH 13.1 % (12.0-15.0); WHITE BLOOD COUNT 9.1 x10^3/uL (4.8-10.8)
[2021-06-25 20:30] LABS: ACETAMINOPHEN < 10 ug/mL (10-30); ALBUMIN 3.7 g/dL (3.2-5.5); ALBUMIN/GLOBULIN RATIO 1.2 (1.0-2.2); ALKALINE PHOSPHATASE 56 IU/L (42-121); ALT ALANINE AMINOTRANSFERASE 23 IU/L (10-60); AST ASPARTATE AMINOTRANSFERASE 25 IU/L (10-42); BILIRUBIN,TOTAL 0.3 mg/dL (0.2-1.0); BUN - BLOOD UREA NITROGEN 21 mg/dL (6-20); CALCIUM 9.5 mg/dL (8.5-10.3); CARBON DIOXIDE - CO2 30 mmol/L (21-32); CHLORIDE 101 mmol/L (101-111); CREATININE 0.8 mg/dL (0.4-1.0); ETOH - ETHANOL < 5.0 mg/dL; GFR - MDRD 76 (>89); GLUCOSE 190 mg/dL (70-100); LIPASE 47 U/L (22-51); POTASSIUM 3.7 mmol/L (3.5-5.0); SALICYLATE < 6.0 mg/dL; SODIUM 143 mmol/L (135-145); TOTAL PROTEIN 6.9 g/dL (6.7-8.2)
[2021-06-25 20:52] LABS: MUDS CUTOFF CONCENTRATIONS CUTOFF CONC BELOW:
--- NOTE | 2021-06-25 20:56 | CT Report ---
PROCEDURE: HEAD WO INDICATIONS: ams, etoh, ?trauma TECHNIQUE: Noncontrast 4.5 mm thick angled axial sections acquired from the foramen magnum to the vertex. For r adiation dose reduction, the following was used: automated exposure control, adjustment of mA and/or kV according to patient size. COMPARISON: None. FINDINGS: Image quality: Excellent. CSF spaces: Basal cisterns are patent. No extra-axial fluid collections. Ventricles are normal in size and shape. Brain: No midline shift. No intracranial masses or hemorrhage. Rodrigues-white matter interface is norm al. Skull and face: Calvarium and visualized facial bones are intact, without suspicious lesions. Sinuses: There is a mucosal retention material in the right maxillary sinus. Mastoids are clear. IMPRESSION: 1. No acute intracranial abnormalities. 2. Mild right maxillary sinus disease. Reviewed by: Pedro Mai MD on 06/25/2021 8:55 PM PST Approved by: Pedro Mai MD on 06/25/2021 8:55 PM PST Station ID: [id number]
[2021-06-25 20:57] LABS: BILIRUBIN,URINE NEGATIVE (NEGATIVE); GLUCOSE, URINE (UA) NEGATIVE (NEGATIVE); KETONES,URINE (UA) NEGATIVE (NEGATIVE); LEUKOCYTE ESTERASE, URINE NEGATIVE (NEGATIVE); NITRITE,URINE NEGATIVE (NEGATIVE); OCCULT BLOOD,URINE NEGATIVE (NEGATIVE); PROTEIN,URINE NEGATIVE (NEGATIVE); UROBILINOGEN,URINE 0.2 (NORMAL) E.U./dL (NORMAL)
[2021-06-25 20:58] LABS: CLARITY,URINE CLEAR (CLEAR); HCG UR QUAL NEGATIVE
--- NOTE | 2021-06-25 20:59 | CT Report ---
PROCEDURE: CERVICAL SPINE WO INDICATIONS: ams, etoh, ?trauma TECHNIQUE: Noncontrast 3 mm thick sections acquired from the skull base to the T4 level. Sagittal and coronal r eformats were then constructed. For radiation dose reduction, the following was used: automated exp osure control, adjustment of mA and/or kV according to patient size. COMPARISON: None. FINDINGS: Image quality: Excellent. Bones: No fractures or dislocations. Moderate degenerative disc and facet disease in cervical spine . Visualized superior ribs are intact. Soft tissues: Prevertebral soft tissues are normal in thickness. No paravertebral hematomas. No ap ical pneumothoraces. IMPRESSION: 1. No cervical spine fractures. 2. Moderate degenerative disc and facet disease. Reviewed by: Pedro Mai MD on 06/25/2021 8:58 PM PST Approved by: Pedro Mai MD on 06/25/2021 8:58 PM PST Station ID: [id number]
[2021-06-25 21:06] LABS: AMPHETAMINE SCREEN,URINE NEGATIVE (NEGATIVE); BARBITURATE SCREEN,UR NEGATIVE (NEGATIVE); BENZODIAZEPINES SCREEN, URINE NEGATIVE (NEGATIVE); COCAINE SCREEN URINE NEGATIVE (NEGATIVE); METHADONE SCREEN, URINE NEGATIVE (NEGATIVE); METHAMPHETAMINES SCREEN, URINE NEGATIVE (NEGATIVE); OPIATE SCREEN, URINE NEGATIVE (NEGATIVE); OXYCODONE SCREEN, URINE NEGATIVE (NEGATIVE); PROPOXYPHENE SCREEN, URINE NEGATIVE (NEGATIVE); THC CANNABINOID SCREEN, URINE POSITIVE (NEGATIVE); TRICYCLIC ANTIDEPRESSANT,URINE NEGATIVE (NEGATIVE)
[2021-06-26] MEDS ORDERED: ACETAMINOPHEN 325 MG TABLET PO STA (02:50)
[2021-06-26 06:28] VITALS: BP 111/71
[2021-06-26] MEDS ORDERED: LORazepam 1 MG TABLET PO STA (08:21)
== END 2021-06-26 09:10 ==
LOC: EDUNIT# → ED 19:48
DX: F29 Unspecified psychosis not due to a substance or known physiological condition (principal); Z20.822 Contact with and (suspected) exposure to COVID-19; F17.200 Nicotine dependence, unspecified, uncomplicated
CPT/HCPCS: 36415; 70450; 72125; 80053; 80306; 80307; 81003; 81025; 83690; 84443; 85025; 87635; 93005; 99281; 99285; A9270; G0480; J8499; 80320; 80329; 81001; 87086

== ENCOUNTER 2021-07-16 19:11 | Outpatient (CLI) | payer MEDICAID, MEDICARE | END 2021-07-16 19:12 | disposition critical access hospital (66) | LOC: EMS 19:11 | DX: F41.9 Anxiety disorder, unspecified (principal); R41.82 Altered mental status, unspecified | CPT/HCPCS: A0425; A0429 ==

== ENCOUNTER 2021-07-16 19:30 | Emergency (ER) | payer MEDICAID, MEDICARE ==
--- OUTSIDE RECORDS SUMMARY | 2021-07-16 19:59 | EXTERNAL MEDICAL SUMMARY RPT | Continuity of Care Document ---
:1970 Author Organization [facility] Address [address] [place] [address] Phone Allergies No information. Encounters No information. Medications No information. Problems date description facility [id number] pain [facility] [id number] foot pain [facility] [id number] mhe [facility] [id number] Suicidal [facility] [id number] [facility] [id number] Pain [facility] Results No information.
[2021-07-16 20:08] LABS: BASOPHILS # (AUTO) 0.1 10^3/uL (0.0-0.1); BASOPHILS % (AUTO) 1.9 %; EOSINOPHILS # (AUTO) 0.2 10^3/uL (0.0-0.7); EOSINOPHILS % (AUTO) 2.9 %; HCT - HEMATOCRIT 37.9 % (37.0-47.0); HGB - HEMOGLOBIN 12.9 g/dL (12.0-16.0); LYMPHOCYTES # (AUTO) 2.1 10^3/uL (1.5-3.5); LYMPHOCYTES % (AUTO) 40.3 %; MEAN CORPUSCULAR HEMOGLOBIN 32.1 pg (27.0-31.0); MEAN CORPUSCULAR VOLUME 94.3 fL (81.0-99.0); MEAN PLATELET VOLUME 11.1 fL (7.9-10.8); MONOCYTES # (AUTO) 0.3 10^3/uL (0.0-1.0); NEUTROPHILS # (AUTO) 2.5 10^3/uL (1.5-6.6); NEUTROPHILS % (AUTO) 48.5 %; PLT - PLATELET COUNT 221 10^3/uL (130-450); RED BLOOD COUNT 4.02 10^6/uL (4.20-5.40); RED CELL DISTRIBUTION WIDTH 13.3 % (12.0-15.0); WHITE BLOOD COUNT 5.2 x10^3/uL (4.8-10.8)
[2021-07-16 20:23] LABS: ACETAMINOPHEN < 10 ug/mL (10-30); ALBUMIN 3.8 g/dL (3.2-5.5); ALBUMIN/GLOBULIN RATIO 1.3 (1.0-2.2); ALKALINE PHOSPHATASE 43 IU/L (42-121); ALT ALANINE AMINOTRANSFERASE 20 IU/L (10-60); AST ASPARTATE AMINOTRANSFERASE 21 IU/L (10-42); BILIRUBIN,TOTAL 0.4 mg/dL (0.2-1.0); BUN - BLOOD UREA NITROGEN 15 mg/dL (6-20); CALCIUM 9.1 mg/dL (8.5-10.3); CARBON DIOXIDE - CO2 29 mmol/L (21-32); CHLORIDE 99 mmol/L (101-111); CREATININE 0.8 mg/dL (0.4-1.0); ETOH - ETHANOL 5.8 mg/dL; GFR - MDRD 76 (>89); GLUCOSE 162 mg/dL (70-100); LIPASE 32 U/L (22-51); POTASSIUM 3.4 mmol/L (3.5-5.0); SALICYLATE < 6.0 mg/dL; SODIUM 142 mmol/L (135-145); TOTAL PROTEIN 6.7 g/dL (6.7-8.2)
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
--- NOTE | 2021-07-16 21:43 | CT Report ---
PROCEDURE: HEAD WO INDICATIONS: AMS TECHNIQUE: Noncontrast 4.5 mm thick angled axial sections acquired from the foramen magnum to the vertex. For r adiation dose reduction, the following was used: automated exposure control, adjustment of mA and/or kV according to patient size. COMPARISON: CT head 06/25/2021. FINDINGS: Image quality: Excellent. CSF spaces: Basal cisterns are patent. No extra-axial fluid collections. Ventricles are normal in size and shape. Brain: No midline shift. No intracranial masses or hemorrhage. Rodrigues-white matter interface is norm al. Skull and face: Calvarium and visualized facial bones are intact, without suspicious lesions. Sinuses: Frothy material within the right maxillary sinus is incompletely imaged. Visualized sinuses and mastoids are otherwise clear. IMPRESSION: 1.No acute intracranial abnormality. 2.Small amount of frothy material is partially imaged in the right maxillary sinus, which can be seen in the setting of acute sinusitis. Reviewed by: Roland Vizcarra MD on 07/16/2021 9:42 PM PST Approved by: Roland Vizcarra MD on 07/16/2021 9:42 PM PST Station ID: [id number]
[2021-07-16] MEDS ORDERED: ONDANSETRON ODT 4 MG TABLET TL STA (21:45)
--- NOTE | 2021-07-16 21:46 | CT Report ---
PROCEDURE: CERVICAL SPINE WO INDICATIONS: AMS TECHNIQUE: Noncontrast 3 mm thick sections acquired from the skull base to the T4 level. Sagittal and coronal r eformats were then constructed. For radiation dose reduction, the following was used: automated exp osure control, adjustment of mA and/or kV according to patient size. COMPARISON: CT cervical spine 06/25/2021. FINDINGS: Image quality: Excellent. Bones: No acute fractures or dislocations. Visualized superior ribs are intact. Multilevel disc sp nina narrowing and degenerative endplate changes are seen. Intervertebral joint and facet hypertrophy are also noted at multiple levels. No high-grade narrowing of the findings canal is seen. Soft tissues: Prevertebral soft tissues are normal in thickness. No paravertebral hematomas. No ap ical pneumothoraces. IMPRESSION: No acute cervical spine fracture or subluxation. Multilevel spondylosis. Reviewed by: Roland Vizcarra MD on 07/16/2021 9:44 PM PST Approved by: Roland Vizcarra MD on 07/16/2021 9:44 PM PST Station ID: [id number]
[2021-07-17 00:59] VITALS: BP 105/61
[2021-07-17 03:42] LABS: MUDS CUTOFF CONCENTRATIONS CUTOFF CONC BELOW:
[2021-07-17 03:53] LABS: BILIRUBIN,URINE NEGATIVE (NEGATIVE); GLUCOSE, URINE (UA) NEGATIVE (NEGATIVE); KETONES,URINE (UA) NEGATIVE (NEGATIVE); LEUKOCYTE ESTERASE, URINE NEGATIVE (NEGATIVE); NITRITE,URINE NEGATIVE (NEGATIVE); OCCULT BLOOD,URINE NEGATIVE (NEGATIVE); PROTEIN,URINE NEGATIVE (NEGATIVE); UROBILINOGEN,URINE 1 (NORMAL) E.U./dL (NORMAL)
[2021-07-17 03:54] LABS: CLARITY,URINE SL. CLOUDY (CLEAR)
[2021-07-17 04:01] LABS: AMORPHOUS SEDIMENT,UR Marked /LPF; BACTERIA,URINE None Seen /HPF (None Seen); RBC,URINE None Seen /HPF (0-5); SQUAMOUS EPITHELIAL CELL,UR NONE SEEN (<= Few); WBC,URINE 0-3 /HPF (0-5)
[2021-07-17 04:04] LABS: AMPHETAMINE SCREEN,URINE NEGATIVE (NEGATIVE); BARBITURATE SCREEN,UR NEGATIVE (NEGATIVE); BENZODIAZEPINES SCREEN, URINE NEGATIVE (NEGATIVE); COCAINE SCREEN URINE NEGATIVE (NEGATIVE); METHADONE SCREEN, URINE NEGATIVE (NEGATIVE); METHAMPHETAMINES SCREEN, URINE NEGATIVE (NEGATIVE); OPIATE SCREEN, URINE NEGATIVE (NEGATIVE); OXYCODONE SCREEN, URINE NEGATIVE (NEGATIVE); PROPOXYPHENE SCREEN, URINE NEGATIVE (NEGATIVE); THC CANNABINOID SCREEN, URINE POSITIVE (NEGATIVE); TRICYCLIC ANTIDEPRESSANT,URINE POSITIVE (NEGATIVE)
--- NOTE | 2021-07-17 07:44 | ED Physician Documentation ---
ED Addendum - Addendum Addendum: The patient states she would prefer leaving the ER at this point. We discussed waiting for social work. Regarding what they have to offer, the patient states she would probably get more usefulness from calling [facility] that she is affiliated with. She is gathering her belongings and is pleasant and polite. She states she would like to go and have a cigarette and then call for resources. Disposition: The patient is discharged stable from the ER to home. Diagnoses: 1. Schizoaffective disorder 2. Social stresses 07/17/21 07:42
== END 2021-07-17 07:44 | disposition home or self-care (01) ==
LOC: EDUNIT# → ED 19:30
DX: F25.9 Schizoaffective disorder, unspecified (principal); F17.200 Nicotine dependence, unspecified, uncomplicated; Z59.00 Homelessness unspecified
CPT/HCPCS: 36415; 70450; 72125; 80053; 80306; 80307; 81001; 83690; 84443; 85025; 99281; 99284; G0480; Q0162; 80320; 80329; 81003; 87086

== ENCOUNTER 2021-07-17 19:15 | Outpatient (CLI) | payer MEDICARE | END 2021-07-17 19:16 | disposition critical access hospital (66) | LOC: EMS 19:15 | DX: M25.552 Pain in left hip (principal) | CPT/HCPCS: A0425; A0429 ==

== ENCOUNTER 2021-07-17 19:34 | Emergency (ER) | payer MEDICARE ==
[2021-07-17] MEDS ORDERED: ACETAMINOPHEN 325 MG TABLET PO STA (19:39)
[2021-07-17 19:47] VITALS: BP 134/110
--- NOTE | 2021-07-17 20:22 | ED Physician Documentation ---
History of Present Illness - Stated complaint Stated Complaint: L HIP PX - Chief complaint Chief Complaint: Trauma Ext - History obtained from History obtained from: Patient, EMS - History of Present Illness Timing: Today Pain level max: 2 Pain level now: 2 - Additonal information Additional information: 51-year-old female brought in by EMS tonight. She states that she usually stays at the [facility] but missed the cutoff time to go to the [facility] so the [facility] brought [facility] She denies any other medical issues at this time. She does request Tylenol for generalized body aches. This is chronic. No fevers. No chills. No suicidal or homicidal ideation. No other complaints. 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 HEENT: None Psych: Anxiety, Bipolar disorder, Schizophrenia, Post traumatic stress disorder Musculoskeletal: Fibromyalgia, Chronic back pain Derm: None - Past Surgical History 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: Dilation and currettage, 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, Oophrectomy HEENT: Tonsil/Adenoidectomy - Present Medications Home Medications: Ambulatory Orders Medication Instructions Recorded Confirmed Divalproex [Renato Grant] 500 mg PO BID 10/22/16 10/22/16 Gabapentin 600 mg PO TID 10/22/16 10/22/16 Ibuprofen 800 mg PO TID 10/22/16 10/22/16 Propranolol [Inderal] 10 mg BID 10/22/16 10/22/16 Sertraline [Zoloft] 50 mg PO DAILY 10/22/16 10/22/16 Tizanidine HCl 4 mg PO TID PRN #30 capsule 10/22/16 oxyCODONE [Roxicodone] 0 mg PO ONCE 10/22/16 10/22/16 Budesonide [Budesonide EC] 9 mg PO DAILY 02/10/18 02/10/18 Lidocaine Patch 5% [Lidoderm Patch] 1 each TOP DAILY PRN #15 patch 02/10/18 Tramadol HCl [Ultram] 07/17/21 - Allergies Allergies/Adverse Reactions: Allergies Allergy/AdvReac Type Severity Reaction Status Date / Time pregabalin [From Lyrica] Allergy Intermediate Respiratory Verified 07/16/21 19:36 morphine Allergy Edema Verified 07/16/21 19:36 tramadol HCl * [From Ultram] Allergy Hives Verified 07/16/21 19:36 Tricyclic Compounds Allergy Anxiety Verified 07/16/21 19:36 venlafaxine HCl * Allergy Unknown Verified 07/16/21 19:36 [From Effexor] - Social History Does the pt smoke?: Yes Smoking Status: Current every day smoker Does the pt drink ETOH?: No Does the pt have substance abuse?: Yes - Immunizations Immunizations are current?: Yes - POLST Patient has POLST: No PD ED PE NORMAL - Vitals Vital signs reviewed: Yes - General General: Alert and oriented X 3, No acute distress - HEENT HEENT: Moist mucous membranes, Pharynx benign - Neck Neck: Supple, no meningeal sign - Cardiac Cardiac: RRR, Strong equal pulses - Respiratory Respiratory: No respiratory distress, Clear bilaterally - Abdomen Abdomen: Soft, Non tender, Non distended - Derm Derm: Warm and dry - Extremities Extremities: No calf tenderness / cord - Neuro Neuro: Alert and oriented X 3 - Psych Psych: Normal mood, Normal affect Results - Vitals Vitals: Vital Signs - 24 hr 07/17/21 07/17/21 19:41 19:58 Temperature 36.6 C Heart Rate 65 70 Respiratory 18 14 Rate Blood Pressure 134/110 H 134/110 H O2 Saturation 97 97 Oxygen O2 Source Room air PD MEDICAL DECISION MAKING - ED course Complexity details: considered differential, d/w patient ED course: Patient is well-known to this emergency department. Patient is calm and cooperative here. We will allow her to sleep in the emergency department until the buses begin to run in the morning. No emergency medical condition at this time. This document was made in part using voice recognition software. While efforts are made to proofread this document, sound alike and grammatical errors may occur. Departure - Departure Disposition: 01 Home, Self Care Clinical Impression: Homelessness unspecified Condition: Good Instructions: ED Screening Exam Medical Nonurgent Follow-Up: your,doctor as needed [Other] Comments: There is no emergency medical condition tonight. Please follow-up with your doctor for further care.
--- OUTSIDE RECORDS SUMMARY | 2021-07-18 04:40 | EXTERNAL MEDICAL SUMMARY RPT | Continuity of Care Document ---
:1970 Author Organization [place] Address [address] [place] [address] Phone Allergies No information. Encounters No information. Medications No information. Problems date description facility [id number] pain [facility] [id number] foot pain [facility] [id number] mhe [facility] [id number] Suicidal [facility] [id number] Mental Health Crisis [facility] [id number] Pain [facility] Results No information.
== END 2021-07-18 06:30 | disposition home or self-care (01) ==
LOC: EDUNIT# → ED 19:34
DX: F25.9 Schizoaffective disorder, unspecified (principal); M79.10 Myalgia, unspecified site; Z59.01 Sheltered homelessness; F17.200 Nicotine dependence, unspecified, uncomplicated
CPT/HCPCS: 99281; 99283

== ENCOUNTER 2021-07-26 14:48 | Emergency (ER) | payer MEDICAID, MEDICARE ==
[2021-07-26 15:06] VITALS: BP 129/90
[2021-07-26 15:20] LABS: BASOPHILS # (AUTO) 0.2 10^3/uL (0.0-0.1); BASOPHILS % (AUTO) 1.7 %; EOSINOPHILS # (AUTO) 0.2 10^3/uL (0.0-0.7); EOSINOPHILS % (AUTO) 1.6 %; HCT - HEMATOCRIT 43.2 % (37.0-47.0); HGB - HEMOGLOBIN 14.4 g/dL (12.0-16.0); LYMPHOCYTES # (AUTO) 2.3 10^3/uL (1.5-3.5); LYMPHOCYTES % (AUTO) 21.8 %; MEAN CORPUSCULAR HEMOGLOBIN 31.9 pg (27.0-31.0); MEAN CORPUSCULAR HGB CONC 33.3 g/dL (32.0-36.0); MEAN CORPUSCULAR VOLUME 95.8 fL (81.0-99.0); MEAN PLATELET VOLUME 11.1 fL (7.9-10.8); MONOCYTES # (AUTO) 0.7 10^3/uL (0.0-1.0); MONOCYTES % (AUTO) 6.9 %; NEUTROPHILS # (AUTO) 7.1 10^3/uL (1.5-6.6); NEUTROPHILS % (AUTO) 67.4 %; PLT - PLATELET COUNT 217 10^3/uL (130-450); RED BLOOD COUNT 4.51 10^6/uL (4.20-5.40); RED CELL DISTRIBUTION WIDTH 13.4 % (12.0-15.0); WHITE BLOOD COUNT 10.6 x10^3/uL (4.8-10.8)
[2021-07-26 15:23] LABS: MUDS CUTOFF CONCENTRATIONS CUTOFF CONC BELOW:
--- OUTSIDE RECORDS SUMMARY | 2021-07-26 15:27 | EXTERNAL MEDICAL SUMMARY RPT | Continuity of Care Document ---
:1970 Author Organization [place] Address [address] [place] [address] Phone Allergies No information. Encounters No information. Medications No information. Problems date description facility [id number] Unsteadiness on feet [facility] [id number] Unspecified speech disturbances [facility] [id number] Suicidal ideations [facility] [id number] Other symptoms and signs involving the [facility] musculoskeletal system [id number] Headache, unspecified [facility] [id number] Ataxia, unspecified [facility] [id number] pain [facility] [id number] foot pain [facility] [id number] mhe [facility] [id number] Suicidal [facility] [id number] Mental Health Crisis [facility] [id number] Pain [facility] Results No information.
[2021-07-26 15:28] LABS: BILIRUBIN,URINE NEGATIVE (NEGATIVE); GLUCOSE, URINE (UA) NEGATIVE (NEGATIVE); KETONES,URINE (UA) NEGATIVE (NEGATIVE); LEUKOCYTE ESTERASE, URINE NEGATIVE (NEGATIVE); NITRITE,URINE NEGATIVE (NEGATIVE); OCCULT BLOOD,URINE NEGATIVE (NEGATIVE); PH,URINE 6.5 PH (5.0-7.5); PROTEIN,URINE NEGATIVE (NEGATIVE); UROBILINOGEN,URINE 0.2 (NORMAL) E.U./dL (NORMAL)
[2021-07-26 15:39] LABS: ACETAMINOPHEN < 10 ug/mL (10-30); ALBUMIN 4.5 g/dL (3.2-5.5); ALBUMIN/GLOBULIN RATIO 1.3 (1.0-2.2); ALKALINE PHOSPHATASE 43 IU/L (42-121); ALT ALANINE AMINOTRANSFERASE 24 IU/L (10-60); AST ASPARTATE AMINOTRANSFERASE 20 IU/L (10-42); BILIRUBIN,TOTAL 0.3 mg/dL (0.2-1.0); BUN - BLOOD UREA NITROGEN 22 mg/dL (6-20); CALCIUM 9.5 mg/dL (8.5-10.3); CARBON DIOXIDE - CO2 31 mmol/L (21-32); CHLORIDE 99 mmol/L (101-111); CREATININE 0.8 mg/dL (0.4-1.0); ETOH - ETHANOL < 5.0 mg/dL; GFR - MDRD 76 (>89); GLUCOSE 66 mg/dL (70-100); LIPASE 38 U/L (22-51); POTASSIUM 4.8 mmol/L (3.5-5.0); SALICYLATE < 6.0 mg/dL; SODIUM 140 mmol/L (135-145); TOTAL PROTEIN 7.9 g/dL (6.7-8.2)
[2021-07-26 15:41] LABS: AMPHETAMINE SCREEN,URINE NEGATIVE (NEGATIVE); BARBITURATE SCREEN,UR POSITIVE (NEGATIVE); BENZODIAZEPINES SCREEN, URINE NEGATIVE (NEGATIVE); CLARITY,URINE CLEAR (CLEAR); COCAINE SCREEN URINE NEGATIVE (NEGATIVE); METHADONE SCREEN, URINE NEGATIVE (NEGATIVE); METHAMPHETAMINES SCREEN, URINE NEGATIVE (NEGATIVE); OPIATE SCREEN, URINE NEGATIVE (NEGATIVE); OXYCODONE SCREEN, URINE NEGATIVE (NEGATIVE); PROPOXYPHENE SCREEN, URINE NEGATIVE (NEGATIVE); THC CANNABINOID SCREEN, URINE POSITIVE (NEGATIVE); TRICYCLIC ANTIDEPRESSANT,URINE NEGATIVE (NEGATIVE)
[2021-07-26] MEDS ORDERED: NICOTINE 14 MG PATCH TOP STA (15:44)
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
== END 2021-07-26 16:09 | disposition home or self-care (01) ==
LOC: EDUNIT# → ED 14:48
DX: F43.10 Post-traumatic stress disorder, unspecified (principal); F17.200 Nicotine dependence, unspecified, uncomplicated
CPT/HCPCS: 36415; 80053; 80306; 80307; 81003; 83690; 84443; 85025; 99282; 99283; G0480; 80320; 80329; 81001; 87086

== ENCOUNTER 2021-08-13 10:17 | Outpatient (CLI) | payer MEDICARE, MEDICAID | END 2021-08-13 10:18 | disposition critical access hospital (66) | LOC: EMS 10:17 | DX: R44.0 Auditory hallucinations (principal); R46.89 Other symptoms and signs involving appearance and behavior | CPT/HCPCS: A0425; A0429 ==

== ENCOUNTER 2021-08-13 10:34 | Emergency (ER) | payer MEDICARE, MEDICAID ==
[2021-08-13] MEDS ORDERED: DIVALPROEX DR 125 MG TABLET PO STA (10:41)
[2021-08-13] MEDS ORDERED: QUEtiapine 100 MG TABLET PO STA (10:41)
[2021-08-13] MEDS ORDERED: ARIPiprazole 5 MG TABLET PO STA (10:41)
[2021-08-13 10:45] VITALS: BP 122/81
--- OUTSIDE RECORDS SUMMARY | 2021-08-13 10:50 | EXTERNAL MEDICAL SUMMARY RPT | Continuity of Care Document ---
:1970 Author Organization [place] Address [address] [place] [address] Phone Allergies No information. Encounters No information. Medications No information. Problems date description facility [id number] EMS OFF MEDS [facility] [id number] Unsteadiness on feet [facility] [id number] Unspecified speech disturbances [facility] [id number] Suicidal ideations [facility] [id number] Other symptoms and signs involving the [facility] musculoskeletal system [id number] Headache, unspecified [facility] [id number] Ataxia, unspecified [facility] [id number] pain [facility] [id number] foot pain [facility] [id number] mhe [facility] [id number] Suicidal [facility] [id number] Mental Health Crisis [facility] [id number] Pain [facility] Results No information.
[2021-08-13 11:01] LABS: BASOPHILS # (AUTO) 0.1 10^3/uL (0.0-0.1); EOSINOPHILS # (AUTO) 0.1 10^3/uL (0.0-0.7); EOSINOPHILS % (AUTO) 1.6 %; HCT - HEMATOCRIT 38.8 % (37.0-47.0); HGB - HEMOGLOBIN 13.3 g/dL (12.0-16.0); LYMPHOCYTES # (AUTO) 1.7 10^3/uL (1.5-3.5); LYMPHOCYTES % (AUTO) 35.1 %; MEAN CORPUSCULAR HGB CONC 34.3 g/dL (32.0-36.0); MEAN CORPUSCULAR VOLUME 93.3 fL (81.0-99.0); MONOCYTES # (AUTO) 0.3 10^3/uL (0.0-1.0); NEUTROPHILS # (AUTO) 2.8 10^3/uL (1.5-6.6); NEUTROPHILS % (AUTO) 56.1 %; PLT - PLATELET COUNT 197 10^3/uL (130-450); RED BLOOD COUNT 4.16 10^6/uL (4.20-5.40); RED CELL DISTRIBUTION WIDTH 12.8 % (12.0-15.0)
[2021-08-13 11:17] LABS: ALBUMIN 3.7 g/dL (3.2-5.5); ALBUMIN/GLOBULIN RATIO 1.4 (1.0-2.2); ALKALINE PHOSPHATASE 37 IU/L (42-121); ALT ALANINE AMINOTRANSFERASE 16 IU/L (10-60); AST ASPARTATE AMINOTRANSFERASE 16 IU/L (10-42); BILIRUBIN,TOTAL 0.7 mg/dL (0.2-1.0); BUN - BLOOD UREA NITROGEN 16 mg/dL (6-20); CARBON DIOXIDE - CO2 28 mmol/L (21-32); CHLORIDE 105 mmol/L (101-111); CREATININE 0.8 mg/dL (0.4-1.0); GFR - MDRD 76 (>89); GLUCOSE 105 mg/dL (70-100); LIPASE 45 U/L (22-51); POTASSIUM 3.9 mmol/L (3.5-5.0); SODIUM 142 mmol/L (135-145); TOTAL PROTEIN 6.3 g/dL (6.7-8.2)
[2021-08-13 11:25] LABS: ETOH - ETHANOL < 5.0 mg/dL
[2021-08-13 11:29] LABS: MUDS CUTOFF CONCENTRATIONS CUTOFF CONC BELOW:
--- NOTE | 2021-08-13 11:37 | ED Physician Documentation ---
History of Present Illness - Stated complaint Stated Complaint: MHE - Chief complaint Chief Complaint: MHE - History obtained from History obtained from: Patient, EMS - Additonal information Additional information: Pt is [facility] to ED for CC of "I'm out of my meds, and I'm not thinking right." Pt denies SI. She was threatening to "go shoplift and get arrested" if EMS didn't bring her in. Pt states she has a place to stay, but ended up sleeping on the street last night, and just wanted to be somewhere with alf, and that is why she made the statement. The pt states that she stopped taking her Abilify, Depakote, and Seroquel a week ago, and thinks she is "off" because of that. She states she has a manager social services through [facility] that she is supposed to call today, and would like to just get back on her meds and proceed with that. She initially considered seeking inpatient treatment, but now states she has changed her mind. No other complaints. Review of Systems Ten Systems: 10 systems reviewed and negative Constitutional: reports: Reviewed and negative Eyes: reports: Reviewed and negative Ears: reports: Reviewed and negative Nose: reports: Reviewed and negative Throat: reports: Reviewed and negative Cardiac: reports: Reviewed and negative Respiratory: reports: Reviewed and negative GI: reports: Reviewed and negative : reports: Reviewed and negative Skin: reports: Reviewed and negative Musculoskeletal: reports: Reviewed and negative Neurologic: reports: Reviewed and negative Psychiatric: reports: Reviewed and negative Endocrine: reports: Reviewed and negative Immunocompromised: reports: Reviewed and negative PD PAST MEDICAL HISTORY - Past Medical History Past Medical History: Yes Cardiovascular: None Respiratory: None Endocrine/Autoimmune: None GI: 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 HEENT: None Psych: Anxiety, Bipolar disorder, Schizophrenia, Post traumatic stress disorder Musculoskeletal: Fibromyalgia, Chronic back pain Derm: None - Past Surgical History 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: 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 and currettage, 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, Oophrectomy HEENT: Tonsil/Adenoidectomy - Present Medications Home Medications: Ambulatory Orders Medication Instructions Recorded Confirmed Divalproex Dr [Depakote Dr] 500 mg PO BID 10/22/16 10/22/16 Gabapentin 600 mg PO TID 10/22/16 10/22/16 Ibuprofen 800 mg PO TID 10/22/16 10/22/16 Propranolol [Inderal] 10 mg BID 10/22/16 10/22/16 Sertraline [Zoloft] 50 mg PO DAILY 10/22/16 10/22/16 Tizanidine HCl 4 mg PO TID PRN #30 capsule 10/22/16 oxyCODONE [Roxicodone] 0 mg PO ONCE 10/22/16 10/22/16 Budesonide [Budesonide EC] 9 mg PO DAILY 02/10/18 02/10/18 Lidocaine Patch 5% [Lidoderm Patch] 1 each TOP DAILY PRN #15 patch 02/10/18 Tramadol HCl [Ultram] 07/17/21 ARIPiprazole [Abilify] 10 mg PO DAILY #30 tablet 08/13/[address] [Depakote Dr] 250 mg PO BID #30 tablet 08/13/21 QUEtiapine [SEROquel] 100 mg PO QPM #30 tablet 08/13/21 - Allergies Allergies/Adverse Reactions: Allergies Allergy/AdvReac Type Severity Reaction Status Date / Time pregabalin [From Lyrica] Allergy Intermediate Respiratory Verified 08/13/21 16: 23 morphine Allergy Edema Verified 08/13/21 16:23 tramadol HCl * [From Ultram] Allergy Hives Verified 08/13/21 16:23 Tricyclic Compounds Allergy Anxiety Verified 08/13/21 16:23 venlafaxine HCl * Allergy Unknown Verified 08/13/21 16:23 [From Effexor] - Social History Does the pt smoke?: Yes Smoking Status: Current every day smoker Does the pt drink ETOH?: No Does the pt have substance abuse?: Yes - Immunizations Immunizations are current?: Yes - POLST Patient has POLST: No PD ED PE NORMAL - Vitals Vital signs reviewed: Yes - General General: Alert and oriented X 3, No acute distress, Other (Mildly disheveled, well-nourished) - HEENT HEENT: Atraumatic, PERRL, EOMI, Moist mucous membranes - Neck Neck: Supple, no meningeal sign - Cardiac Cardiac: RRR, No murmur, Strong equal pulses - Respiratory Respiratory: No respiratory distress, Clear bilaterally - Abdomen Abdomen: Soft, Non tender, Non distended - Derm Derm: Normal color, Warm and dry, No rash - Extremities Extremities: No deformity, No edema - Neuro Neuro: Alert and oriented X 3, 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0 Sodium 142 Potassium 3.9 Chloride 105 Carbon Dioxide 28 Anion Gap 9.0 BUN 16 Creatinine 0.8 Estimated GFR (MDRD) 76 L Glucose 105 H Calcium 9.0 Total Bilirubin 0.7 AST 16 ALT 16 Alkaline Phosphatase 37 L Total Protein 6.3 L Albumin 3.7 Globulin 2.6 Albumin/Globulin Ratio 1.4 Lipase 45 TSH 1.04 Urine Opiates Screen Ur Oxycodone Screen Urine Methadone Screen Ur Propoxyphene Screen Ur Barbiturates Screen Ur Tricyclics Screen Ur Phencyclidine Scrn Ur Amphetamine Screen U Methamphetamines Scrn U Benzodiazepines Scrn Urine Cocaine Screen U Cannabinoids Screen Ethyl Alcohol < 5.0 08/13/21 11:20 WBC RBC Hgb Hct MCV MCH MCHC RDW Plt Count MPV Neut # (Auto) Lymph # (Auto) [place] # (Auto) Eos # (Auto) Baso # (Auto) Absolute Nucleated RBC Nucleated RBC % Sodium Potassium Chloride Carbon Dioxide Anion Gap BUN Creatinine Estimated GFR (MDRD) Glucose Calcium Total Bilirubin AST ALT Alkaline Phosphatase Total Protein Albumin Globulin Albumin/Globulin Ratio Lipase TSH Urine Opiates Screen NEGATIVE Ur Oxycodone Screen NEGATIVE Urine Methadone Screen NEGATIVE Ur Propoxyphene Screen NEGATIVE Ur Barbiturates Screen NEGATIVE Ur Tricyclics Screen NEGATIVE Ur Phencyclidine Scrn NEGATIVE Ur Amphetamine Screen NEGATIVE U Methamphetamines Scrn NEGATIVE U Benzodiazepines Scrn NEGATIVE Urine Cocaine Screen NEGATIVE U Cannabinoids Screen POSITIVE H Ethyl Alcohol PD MEDICAL DECISION MAKING - ED course Complexity details: reviewed old records, reviewed results, re-evaluated patient, considered differential, d/w patient ED course: Pt did not know the doses of her meds, so I ordered her meds with standard dosing. Pt was given prescriptions for the same. She is instructed to follow up with her clinician through [facility]. We have discussed the usual indications for return. Departure - Departure Disposition: 01 Home, Self Care Clinical Impression: PTSD (post-traumatic stress disorder), Schizo affective schizophrenia, Bipolar disease, chronic Condition: Stable Instructions: ED Schizo Affective Disorder Prescriptions: ARIPiprazole [Abilify] 10 mg PO DAILY #[address] [Renato Grant] 250 mg PO BID #30 tablet QUEtiapine [SEROquel] 100 mg PO QPM #30 tablet Discharge Date/Time: 08/13/21 11:41
[2021-08-13 11:45] LABS: AMPHETAMINE SCREEN,URINE NEGATIVE (NEGATIVE); BARBITURATE SCREEN,UR NEGATIVE (NEGATIVE); BENZODIAZEPINES SCREEN, URINE NEGATIVE (NEGATIVE); COCAINE SCREEN URINE NEGATIVE (NEGATIVE); METHADONE SCREEN, URINE NEGATIVE (NEGATIVE); METHAMPHETAMINES SCREEN, URINE NEGATIVE (NEGATIVE); OPIATE SCREEN, URINE NEGATIVE (NEGATIVE); OXYCODONE SCREEN, URINE NEGATIVE (NEGATIVE); PROPOXYPHENE SCREEN, URINE NEGATIVE (NEGATIVE); THC CANNABINOID SCREEN, URINE POSITIVE (NEGATIVE); TRICYCLIC ANTIDEPRESSANT,URINE NEGATIVE (NEGATIVE)
== END 2021-08-13 11:41 | disposition home or self-care (01) ==
LOC: EDUNIT# → ED 10:34
DX: Z76.0 Encounter for issue of repeat prescription (principal); F43.10 Post-traumatic stress disorder, unspecified; F20.9 Schizophrenia, unspecified; F31.9 Bipolar disorder, unspecified; F17.200 Nicotine dependence, unspecified, uncomplicated
CPT/HCPCS: 36415; 80053; 80306; 80320; 83690; 84443; 85025; 99283; 99284

== ENCOUNTER 2021-08-13 15:53 | Outpatient (CLI) | payer MEDICARE, MEDICAID | END 2021-08-13 15:54 | disposition critical access hospital (66) | LOC: EMS 15:53 | DX: R45.851 Suicidal ideations (principal) | CPT/HCPCS: A0425; A0429 ==

== ENCOUNTER 2021-08-13 16:09 | Emergency (ER) | payer MEDICARE, MEDICAID ==
[2021-08-13 16:39] LABS: MUDS CUTOFF CONCENTRATIONS CUTOFF CONC BELOW:
[2021-08-13 16:49] LABS: BASOPHILS # (AUTO) 0.1 10^3/uL (0.0-0.1); BASOPHILS % (AUTO) 1.8 %; EOSINOPHILS # (AUTO) 0.2 10^3/uL (0.0-0.7); EOSINOPHILS % (AUTO) 3.7 %; HCT - HEMATOCRIT 39.9 % (37.0-47.0); HGB - HEMOGLOBIN 13.4 g/dL (12.0-16.0); LYMPHOCYTES # (AUTO) 2.5 10^3/uL (1.5-3.5); MEAN CORPUSCULAR HEMOGLOBIN 31.7 pg (27.0-31.0); MEAN CORPUSCULAR HGB CONC 33.6 g/dL (32.0-36.0); MEAN CORPUSCULAR VOLUME 94.3 fL (81.0-99.0); MONOCYTES # (AUTO) 0.4 10^3/uL (0.0-1.0); MONOCYTES % (AUTO) 7.1 %; NEUTROPHILS # (AUTO) 2.4 10^3/uL (1.5-6.6); PLT - PLATELET COUNT 194 10^3/uL (130-450); RED BLOOD COUNT 4.23 10^6/uL (4.20-5.40); WHITE BLOOD COUNT 5.6 x10^3/uL (4.8-10.8)
[2021-08-13 16:56] LABS: BILIRUBIN,URINE NEGATIVE (NEGATIVE); GLUCOSE, URINE (UA) NEGATIVE (NEGATIVE); KETONES,URINE (UA) NEGATIVE (NEGATIVE); LEUKOCYTE ESTERASE, URINE NEGATIVE (NEGATIVE); NITRITE,URINE NEGATIVE (NEGATIVE); OCCULT BLOOD,URINE NEGATIVE (NEGATIVE); PROTEIN,URINE NEGATIVE (NEGATIVE); UROBILINOGEN,URINE 0.2 (NORMAL) E.U./dL (NORMAL)
--- OUTSIDE RECORDS SUMMARY | 2021-08-13 16:58 | EXTERNAL MEDICAL SUMMARY RPT | Continuity of Care Document ---
:1970 Author Organization [place] Address [address] [place] [address] Phone Allergies No information. Encounters No information. Medications No information. Problems date description facility [id number] EMS OFF MEDS [facility] [id number] Unsteadiness on feet [facility] [id number] Unspecified speech disturbances [facility] [id number] Suicidal ideations [facility] [id number] Other symptoms and signs involving the [facility] musculoskeletal system [id number] Headache, unspecified [facility] [id number] Ataxia, unspecified [facility] [id number] pain [facility] [id number] foot pain [facility] [id number] mhe [facility] [id number] Suicidal [facility] [id number] Mental Health Crisis [facility] [id number] Pain [facility] Results No information.
[2021-08-13 16:59] LABS: CLARITY,URINE CLEAR (CLEAR); HCG UR QUAL NEGATIVE
[2021-08-13 17:07] LABS: AMPHETAMINE SCREEN,URINE NEGATIVE (NEGATIVE); BENZODIAZEPINES SCREEN, URINE NEGATIVE (NEGATIVE); COCAINE SCREEN URINE NEGATIVE (NEGATIVE); METHAMPHETAMINES SCREEN, URINE NEGATIVE (NEGATIVE); OPIATE SCREEN, URINE NEGATIVE (NEGATIVE); THC CANNABINOID SCREEN, URINE POSITIVE (NEGATIVE); TRICYCLIC ANTIDEPRESSANT,URINE POSITIVE (NEGATIVE)
[2021-08-13 17:07] LABS: ACETAMINOPHEN < 10 ug/mL (10-30); ALBUMIN 3.8 g/dL (3.2-5.5); ALBUMIN/GLOBULIN RATIO 1.5 (1.0-2.2); ALKALINE PHOSPHATASE 40 IU/L (42-121); ALT ALANINE AMINOTRANSFERASE 14 IU/L (10-60); AST ASPARTATE AMINOTRANSFERASE 15 IU/L (10-42); BILIRUBIN,TOTAL 0.5 mg/dL (0.2-1.0); BUN - BLOOD UREA NITROGEN 14 mg/dL (6-20); CALCIUM 9.1 mg/dL (8.5-10.3); CARBON DIOXIDE - CO2 29 mmol/L (21-32); CHLORIDE 100 mmol/L (101-111); CREATININE 0.8 mg/dL (0.4-1.0); ETOH - ETHANOL < 5.0 mg/dL; GFR - MDRD 76 (>89); GLUCOSE 91 mg/dL (70-100); LIPASE 32 U/L (22-51); POTASSIUM 3.6 mmol/L (3.5-5.0); SALICYLATE < 6.0 mg/dL; SODIUM 137 mmol/L (135-145); TOTAL PROTEIN 6.3 g/dL (6.7-8.2)
[2021-08-13 17:08] LABS: BARBITURATE SCREEN,UR NEGATIVE (NEGATIVE); METHADONE SCREEN, URINE NEGATIVE (NEGATIVE); OXYCODONE SCREEN, URINE NEGATIVE (NEGATIVE); PROPOXYPHENE SCREEN, URINE NEGATIVE (NEGATIVE)
--- NOTE | 2021-08-13 18:14 | ED Physician Documentation ---
History of Present Illness - Stated complaint Stated Complaint: SI - Chief complaint Chief Complaint: MHE - History obtained from History obtained from: Patient, EMS - Additonal information Additional information: Patient returns emergency department chief complaint of suicidal ideation. She was seen here earlier today after being off her Abilify, Depakote, and Seroquel for the last week. She has a history of bipolar disorder and schizophrenia. She has not tried to harm herself since being seen here this morning. This morning, she was evaluated by social work and cleared for discharge to go see her own delinquency prevention social worker through [facility]. She was also given doses of her medications and prescriptions for the same. Patient states she just does not feel safe and she thinks she needs to go to inpatient. No other complaints at this time. Review of Systems Ten Systems: 10 systems reviewed and negative Constitutional: reports: Reviewed and negative Eyes: reports: Reviewed and negative Ears: reports: Reviewed and negative Nose: reports: Reviewed and negative Throat: reports: Reviewed and negative Cardiac: reports: Reviewed and negative Respiratory: reports: Reviewed and negative GI: reports: Reviewed and negative : reports: Reviewed and negative Skin: reports: Reviewed and negative Musculoskeletal: reports: Reviewed and negative Neurologic: reports: Reviewed and negative Psychiatric: reports: Suicidal Endocrine: reports: Reviewed and negative Immunocompromised: reports: Reviewed and negative PD PAST MEDICAL HISTORY - Past Medical History Cardiovascular: None Respiratory: None Endocrine/Autoimmune: None GI: None 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 HEENT: None Psych: Anxiety, Bipolar disorder, Schizophrenia, Post traumatic stress disorder Musculoskeletal: Fibromyalgia, Chronic back pain Derm: None - Past Surgical History Past Surgical History: Yes /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: 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 and currettage, 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, Oophrectomy HEENT: Tonsil/Adenoidectomy - Present Medications Home Medications: Ambulatory Orders Medication Instructions Recorded Confirmed Divalproex [Depakote ] 500 mg PO BID 10/22/16 10/22/16 Gabapentin 600 mg PO TID 10/22/16 10/22/16 Ibuprofen 800 mg PO TID 10/22/16 10/22/16 Propranolol [Inderal] 10 mg BID 10/22/16 10/22/16 Sertraline [Zoloft] 50 mg PO DAILY 10/22/16 10/22/16 Tizanidine HCl 4 mg PO TID PRN #30 capsule 10/22/16 oxyCODONE [Roxicodone] 0 mg PO ONCE 10/22/16 10/22/16 Budesonide [Budesonide EC] 9 mg PO DAILY 02/10/18 02/10/18 Lidocaine Patch 5% [Lidoderm Patch] 1 each TOP DAILY PRN #15 patch 02/10/18 Tramadol HCl [Ultram] 07/17/21 ARIPiprazole [Abilify] 10 mg PO DAILY #30 tablet 08/13/[address] [Depakote Dr] 250 mg PO BID #30 tablet 08/13/21 QUEtiapine [SEROquel] 100 mg PO QPM #30 tablet 08/13/21 - Allergies Allergies/Adverse Reactions: Allergies Allergy/AdvReac Type Severity Reaction Status Date / Time pregabalin [From Lyrica] Allergy Intermediate Respiratory Verified 08/13/21 16:23 morphine Allergy Edema Verified 08/13/21 16:23 tramadol HCl * [From Ultram] Allergy Hives Verified 08/13/21 16:23 Tricyclic Compounds Allergy Anxiety Verified 08/13/21 16:23 venlafaxine HCl * Allergy Unknown Verified 08/13/21 16:23 [From Effexor] - Social History Does the pt smoke?: Yes Smoking Status: Current every day smoker Does the pt drink ETOH?: No Does the pt have substance abuse?: Yes - Immunizations Immunizations are current?: Yes - POLST Patient has POLST: No PD ED PE NORMAL - Vitals Vital signs reviewed: Yes - General General: No acute distress, Well developed/nourished, Other (Alert and conversant) - HEENT HEENT: Atraumatic, PERRL, EOMI, Moist mucous membranes - Neck Neck: Supple, no meningeal sign - Cardiac Cardiac: RRR, No murmur, Strong equal pulses - Respiratory Respiratory: No respiratory distress, Clear bilaterally - Abdomen Abdomen: Soft, Non tender, Non distended - Derm Derm: Normal color, Warm and dry, No rash - Extremities Extremities: No deformity, No edema, No calf tenderness / cord - Neuro Neuro: Other (Alert and generally answers questions appropriately but is distracted and agitated.) - Psych Psych: Other (Mildly agitated, but cooperative.) Results - Vitals Vitals: Vital Signs - 24 hr 08/13/21 16:15 Temperature 36.8 C Heart Rate 66 Respiratory 20 Rate Blood Pressure 142/90 H O2 Saturation 100 Oxygen O2 Source Room air - Labs Labs: Laboratory Tests 08/13/21 08/13/21 08/13/21 16:17 16:45 16:45 WBC 5.6 RBC 4.23 Hgb 13.4 Hct 39.9 MCV 94.3 MCH 31.7 H MCHC 33.6 RDW 13.0 Plt Count 194 MPV 11.0 H Neut # (Auto) 2.4 Lymph # (Auto) 2.5 [place] # (Auto) 0.4 Eos # (Auto) 0.2 Baso # (Auto) 0.1 Absolute Nucleated RBC 0.00 Nucleated RBC % 0.0 Sodium 137 Potassium 3.6 Chloride 100 L Carbon Dioxide 29 Anion Gap 8.0 BUN 14 Creatinine 0.8 Estimated GFR (MDRD) 76 L Glucose 91 Calcium 9.1 Total Bilirubin 0.5 AST 15 ALT 14 Alkaline Phosphatase 40 L Total Protein 6.3 L Albumin 3.8 Globulin 2.5 Albumin/Globulin Ratio 1.5 Lipase 32 TSH Urine Color YELLOW Urine Clarity CLEAR Urine pH 7.0 Ur Specific [place] 1.015 Urine Protein NEGATIVE Urine Glucose (UA) NEGATIVE Urine Ketones NEGATIVE Urine Occult Blood NEGATIVE Urine Nitrite NEGATIVE Urine Bilirubin NEGATIVE Urine Urobilinogen 0.2 (NORMAL) Ur Leukocyte Esterase NEGATIVE Ur Microscopic Review NOT INDICATED Urine Culture Comments NOT INDICATED Urine HCG, Qual NEGATIVE Salicylates < 6.0 Urine Opiates Screen NEGATIVE Ur Oxycodone Screen NEGATIVE Urine Methadone Screen NEGATIVE Ur Propoxyphene Screen NEGATIVE Acetaminophen < 10 L Ur Barbiturates Screen NEGATIVE Ur Tricyclics Screen POSITIVE H Ur Phencyclidine Scrn NEGATIVE Ur Amphetamine Screen NEGATIVE U Methamphetamines Scrn NEGATIVE U Benzodiazepines Scrn NEGATIVE Urine Cocaine Screen NEGATIVE U Cannabinoids Screen POSITIVE H Ethyl Alcohol < 5.0 08/13/21 16:45 WBC RBC Hgb Hct MCV MCH MCHC RDW Plt Count MPV Neut # (Auto) Lymph # (Auto) [place] # (Auto) Eos # (Auto) Baso # (Auto) Absolute Nucleated RBC Nucleated RBC % Sodium Potassium Chloride Carbon Dioxide Anion Gap BUN Creatinine Estimated GFR (MDRD) Glucose Calcium Total Bilirubin AST ALT Alkaline Phosphatase Total Protein Albumin Globulin Albumin/Globulin Ratio Lipase TSH 2.28 Urine Color Urine Clarity Urine pH Ur Specific [place] Urine Protein Urine Glucose (UA) Urine Ketones Urine Occult Blood Urine Nitrite Urine Bilirubin Urine Urobilinogen Ur Leukocyte Esterase Ur Microscopic Review Urine Culture Comments Urine HCG, Qual Salicylates Urine Opiates Screen Ur Oxycodone Screen Urine Methadone Screen Ur Propoxyphene Screen Acetaminophen Ur Barbiturates Screen Ur Tricyclics Screen Ur Phencyclidine Scrn Ur Amphetamine Screen U Methamphetamines Scrn U Benzodiazepines Scrn Urine Cocaine Screen U Cannabinoids Screen Ethyl Alcohol PD MEDICAL DECISION MAKING - ED course Complexity details: reviewed old records, reviewed results, re-evaluated patient, considered differential, d/w patient ED course: Laboratory studies were ordered and the patient was set up for telepsych evaluation. She was signed out to the oncoming emergency physician, pending telepsych eval and final disposition. Departure - Departure Clinical Impression: Schizo affective schizophrenia, Suicidal ideation Bipolar disorder Qualifiers: Active/Remission status: currently active Current bipolar episode type: mixed Current episode severity: moderate Qualified Code(s): F31.62 - Bipolar disorder, current episode mixed, moderate
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
--- NOTE | 2021-08-13 22:25 | ED Physician Documentation ---
ED Addendum - Addendum Addendum: 08/13/21 22:25 Telepsychiatry consulted. Patient is voluntary for psychiatric admission. Recommends continue her current medications and look for placement. Patient calm and cooperative. Patient signed out to the oncoming emergency department physician.
[2021-08-14] MEDS ORDERED: traMADol 50 MG TABLET PO STA (00:04)
[2021-08-14] MEDS ORDERED: QUEtiapine 100 MG TABLET PO STA (00:05)
[2021-08-14] MEDS ORDERED: GABAPENTIN 100 MG CAPSULE PO STA (00:05)
[2021-08-14] MEDS: DIVALPROEX ER 250 MG TABLET PO SCH ×2 (00:10→09:22)
[2021-08-14] MEDS ORDERED: traMADol 50 MG TABLET PO PRN (06:51)
[2021-08-14] MEDS ORDERED: IBUPROFEN 400 MG TABLET PO PRN (06:52)
[2021-08-14] MEDS ORDERED: GABAPENTIN 100 MG CAPSULE PO SCH (07:00)
[2021-08-14] MEDS ORDERED: DIVALPROEX ER 250 MG TABLET PO SCH (09:00)
[2021-08-14 10:57] VITALS: BP 126/88
== END 2021-08-14 11:00 ==
LOC: EDUNIT# → ED 16:09
DX: R45.851 Suicidal ideations (principal); Z76.0 Encounter for issue of repeat prescription; F43.10 Post-traumatic stress disorder, unspecified; F20.9 Schizophrenia, unspecified; F17.200 Nicotine dependence, unspecified, uncomplicated; F31.62 Bipolar disorder, current episode mixed, moderate; Z20.822 Contact with and (suspected) exposure to COVID-19
CPT/HCPCS: 36415; 80053; 80306; 80307; 81003; 81025; 83690; 84443; 85025; 87635; 99283; 99284; 99285; A9270; G0425; G0480; Q3014; 80320; 80329; 81001; 87086